=== PATIENT | male | born 1935 | race Caucasian/White ===

== ENCOUNTER 2019-08-19 19:15 | Emergency (ER) | payer MEDICARE, SELFPAY ==
[2019-08-19 19:28] VITALS: BP 152/78; PULSE 70; RESP 18; TEMP 36.6; O2SAT 100
--- NOTE | 2019-08-19 19:30 | ED.GENADULT ---
HPI - General Adult General Chief complaint: Wound/Laceration Stated complaint: Laceration Left hand Time Seen by Provider: 08/19/19 19:36 Source: patient and RN notes reviewed Mode of arrival: ambulatory Limitations: no limitations History of Present Illness HPI narrative: History today on 08/18/2019 the patient was taking out a garbage disposal and it accidentally caused a small skin tear on the dorsal aspect of the left hand over the midportion of the metacarpal areas between the fourth and fifth metacarpals. He is right-handed. He indicates that this does not hurt. He like to have a tetanus vaccine since he had one last more than 15 years ago. He has never had any adverse reactions to tetanus vaccines in the past. States he has no numbness or tingling or pain in the hand. He did not injure any other areas. He otherwise has been feeling well without any ear pain, no nasal drainage, no sore throat, no fever, no cough. He has had no nausea, no vomiting, no diarrhea. He has had no hematuria, no dysuria, no pyuria. He has had no rashes. Related Data Home Medications Medication Instructions Recorded Confirmed doxazosin 8 mg DAILY 08/19/19 08/19/19 finasteride 5 mg DAILY 08/19/19 08/19/19 memantine 10 mg BID 08/19/19 08/19/19 pantoprazole 40 mg PO DAILY 08/19/19 08/19/19 valsartan 80 mg DAILY 08/19/19 08/19/19 Allergies Allergy/AdvReac Type Severity Reaction Status Date / Time No Known Allergies Allergy Verified 08/19/19 19:36 Review of Systems Review of Systems: Narrative: CONSTITUTIONAL: Denies fever, chills, or sweats. Noncontributory except as pertains to the past medical history and history of present illness EYES: Denies visual changes, redness, or discharge. ENT: Denies rhinorrhea, congestion, sore throat, or otalgia. CARDIOVASCULAR: Denies chest pain, palpitations, or edema. RESPIRATORY: Denies cough or dyspnea. GASTROINTESTINAL: Denies abdominal pain, nausea, vomiting, or diarrhea. GENITOURINARY: Denies dysuria or hematuria. SKIN: Denies rash or itching. MUSCULOSKELETAL: Denies back pain, joint pain, or myalgia. NEUROLOGIC: Denies headache, numbness, or weakness. PSYCHIATRIC: Denies anxiety or depression. PMFSH Comments At time of signature, I have reviewed and agree with nursing past medical, surgical, social, and family history.Please see nursing chart for further information. There is no relevant family history pertinent to the presenting complaint. Exam Narrative: Exam Narrative: GENERAL: Well-appearing, well-nourished, and in no acute distress. HEAD: Normocephalic, atraumatic. EYES: PERRLA and EOMI. EARS: TM's clear bilaterally and the canals are clear. NOSE: Nares clear, no rhinorrhea or epistaxis. THROAT:Mucous membranes moist.Oropharynx normal without erythema or exudates NECK: Supple. No adenopathy of the neck, supraclavicular, axillary, inguinal areas RESPIRATORY: No respiratory distress. Airway patent. Respirations non-labored. Clear to auscultation. There are no wheezes, no rales, no retractions, no use accessory muscles respirations. Patient is not cyanotic and not dyspneic. HEART: Regular rate and rhythm. No murmur heard. Normal peripheral pulses. ABDOMEN: Soft, nontender, nondistended, normal active bowel sounds.No masses. No rebound or guarding, No organomegaly. There is no CVA pain. No pain McBurney's point. He has a negative Ott sign and negative Rovsing sign. There are no pulsatile masses or audible bruits. EXTREMITIES: No clubbing/cyanosis/ edema.Normal strength & range of motion. The extremity exam is normal except for the left hand which has a 2-3mm wide by 5mm llong superficial skin tear which is not actively bleeding and is well approximated. There is no foreign body seen or palpated. There is no evidence of infection. He has full range of motion in flexion-extension of all fingers of the left hand including normal opposition of the thumb. Nailbeds deann normally have normal cap
[2019-08-19] MEDS: TETANUS,DIPHTHERIA,AC PERTUSSIS ADULT (0.5 ML) BOOSTRIX IM (19:35)
== END 2019-08-19 19:55 | disposition home or self-care (01) ==
PROVIDERS: Emergency Provider Family Medicine; PCP Family Medicine
DX: S61.412A Laceration without foreign body of left hand, initial encounter (principal); W26.8XXA Contact with other sharp object(s), not elsewhere classified, initial encounter; Z23 Encounter for immunization; I10 Essential (primary) hypertension
CPT/HCPCS: 90471; 90715; 99202; G0463

== ENCOUNTER 2019-11-17 09:00 | Emergency (ER) | payer MEDICARE, SELFPAY ==
--- NOTE | ~2019-11-17 | XR_ITS ---
EXAMINATION: XR chest 1V portable 11/17/2019 09:42 INDICATION: Weakness. Transient alteration of awareness. Status post fall. PROCEDURE: AP portable chest COMPARISON: No prior studies for comparison. FINDINGS: The lungs are clear. The cardiomediastinal silhouette is within normal limits. There are no pleural effusions. There is no pneumothorax suspected. IMPRESSION: 1: NO ACUTE CARDIOPULMONARY DISEASE. Reviewed, dictated and finalized at location A.
--- NOTE | ~2019-11-17 | CT_ITS ---
EXAMINATION: CT brain wo con DATE: 11/17/2019 09:52 INDICATION: Altered mental status. Confusion. TECHNIQUE: Computed tomography (CT) of the head was performed without intravenous contrast. The dose- length product was 605.33 mGy-cm. The mA was adjusted according to patient size. Iterative reconstruc tion technique was employed. COMPARISON: None FINDINGS: No acute intracranial hemorrhage, infarction, mass or mass effect. No ventriculomegaly or m idline shift. Basilar cisterns are patent. There is intracranial atherosclerosis. Mild atrophy. There are scattered mild periventricular and subcortical white matter changes, most likely related to smal l vessel ischemic disease (microangiopathy). IMPRESSION: 1. No acute intracranial abnormality. 2: Chronic age-related findings. Reviewed, dictated and finalized at location A.
[2019-11-17 09:01] VITALS: BP 113/66; PULSE 97; RESP 16; TEMP 36.6; O2SAT 99
--- NOTE | 2019-11-17 09:09 | ECG_ITS ---
Measurements Intervals [place] Rate: 66 P: 59 DE: 155 QRS: -24 QRSD: 106 T: 71 QT: 377 QTc: 398 Interpretive Statements SINUS RHYTHM WITH SINUS ARRHYTHMIA INCOMPLETE RIGHT BUNDLE BRANCH BLOCK BORDERLINE ECG Electronically Signed On 11-17-2019 9:23:51 CDT by Smith Mcwilliams D.O.
[2019-11-17] MEDS: SODIUM CHLORIDE 0.9% IV 1,000 ML 999 ML IV CONT (09:16)
--- NOTE | 2019-11-17 09:23 | ED.AMS ---
HPI - Altered Mental Status General Chief Complaint: Altered Mental Status Stated Complaint: abd pain Time Seen by Provider: 11/17/19 09:02 Source: RN notes reviewed History of Present Illness HPI narrative: Patient presents emergency department from home for confusion. Patient's history is per the patient as well as the . Patient currently lives at home with his and has a history of dementia. She states that over the past several days the patient has had some increased confusion. She states that he did fall 2 days ago. She denies any known injuries from the fall. Denies any acute illness but states the patient has been losing weight and not eating over the past month. He is scheduled to see GI in consultation coming up secondary to this. Patient denies any fevers or chills chest pain shortness of breath abdominal pain nausea vomiting or any other symptoms Related Data Home Medications Medication Instructions Recorded Confirmed doxazosin 8 mg DAILY 08/19/19 08/19/19 finasteride 5 mg DAILY 08/19/19 08/19/19 memantine 10 mg BID 08/19/19 08/19/19 pantoprazole 40 mg PO DAILY 08/19/19 08/19/19 valsartan 80 mg DAILY 08/19/19 08/19/19 Allergies Allergy/AdvReac Type Severity Reaction Status Date / Time No Known Allergies Allergy Verified 08/19/19 19:36 Review of Systems Review of Systems: Narrative: Gen.: Denies fevers or chills Eyes: Denies eye pain or visual change ENT: Denies congestion Respiratory: Denies shortness of breath or cough CV: Denies chest pain or palpitations GI: Denies abdominal pain nausea, emesis or diarrhea Musculoskeletal: Denies back pain or muscle pain Neuro: Denies numbness, tingling, weakness or focal weakness Skin: Denies rash Except as documented, all other systems reviewed and negative [facility] Past Medical History Medical History (Updated 11/17/19 @ 11:50 by Joel Francis DO) Dementia Social History Social History (Updated 11/17/19 @ 09:25 by Joel Francis DO) Smoking status: Never smoker Gender identity (if verbalized by the patient): Male Exam Narrative: Exam Narrative: APPEARANCE: No acute distress, nontoxic, resting in bed EYES: EOMI, [place] HEENT: Normocephalic, atraumatic, OMM RESPIRATORY: No respiratory distress Clear to auscultation bilaterally with no rhonchi wheezing or rales. CARDIOVASCULAR: Regular rate and rhythm without murmurs rubs or gallops. ABDOMINAL: Soft, nontender, nondistended, no rebound or guarding Rectal: No hemorrhoids or fissures, small amount of soft brown stool is Hemoccult negative MUSCULOSKELETAl: Moves all extremities. No clubbing, cyanosis or edema. NEURO: Awake and alert x 2. Following commands, speech normal, no focal deficits muscle strength 5 out of 5 bilateral upper and lower extremities SKIN:: Warm, dry. No rashes lesions or abrasions PSYCHIATRIC: Normal affect/mood, Course Course Emergency Course: Discussed with Dr. Curiel presentation work-up. Patient is being worked up by GI for early satiety agrees with plan for discharge and follow-up as an outpatient Discussed with patient's is present. She states patient does appear to be his baseline currently and is comfortable with patient returning home Discussed with patient results of workup and diagnosis. Discussed need for follow-up with primary care, proper use of medication, and reasons to return to the emergency department. Patient understands and agrees to current treatment plan Vital Signs Vital signs: Vital Signs Temperature 97.8 F 11/17/19 09:01 Pulse Rate 97 11/17/19 09:01 Respiratory Rate 16 11/17/19 09:01 Blood Pressure 113/66 11/17/19 09:01 Pulse Oximetry 99 11/17/19 09:01 Temperature 97.8 F 11/17/19 09:01 Pulse Rate 97 11/17/19 09:01 Respiratory Rate 14 11/17/19 09:46 Blood Pressure 113/66 11/17/19 09:01 Pulse Oximetry 99 11/17/19 09:46 MDM - Altered Mental Status Lab Data Result diagrams: 11/17/19 09:15
[2019-11-17 09:35] LABS: Basophils Percent Auto 0.4 % (0.2-1.2); Eosinophils Absolute Auto 0.1 K/mm3 (0-0.3); Eosinophils Percent Auto 2.5 % (0-4.4); Hemoglobin 13.6 g/dL (14.0-18.0); Immature Granulocyte Absolute 0.01 K/mm3 (0.00-0.031); Immature Granulocyte Percent A 0.2 % (0-0.5); Lymphocytes Absolute Auto 1.67 K/mm3 (0.9-3.2); Lymphocytes Percent Auto 30.2 % (18.3-44.2); Mean Corpuscular HGB Conc 33.2 g/dl (32-36); Mean Corpuscular Hemoglobin 30.7 pg (26-34); Mean Corpuscular Volume 92.6 fl (80-100); Mean Platelet Volume 10.3 fl (7.4-10.4); Monocytes Absolute Auto 0.4 K/mm3 (0.1-0.6); Monocytes Percent Auto 7.6 % (2.6-8.5); Neutrophils Absolute Auto 3.3 K/mm3 (1.3-6.7); Neutrophils Percent Auto 59.1 % (45.5-73.1); Platelet Count Result 174 k/mm3 (150-375); Red Blood Count 4.43 M/mm3 (4.6-6.20); Red Cell Distribution Width 13.7 % (11.5-14.5); White Blood Count 5.5 K/mm3 (4.5-10.0)
[2019-11-17 09:37] LABS: Add Urine Microscopic? NO; Appearance Urine Clear (Clear); Bilirubin Urine Negative (Negative); Blood Urine Negative (Negative); Color Urine Yellow (Yellow); Glucose Urine UA Negative (Negative); Ketones Urine Negative (Negative); Leukocyte Esterase Ur Negative LEU/UL (Negative); Nitrate Urine Negative (Negative); Protein Urine Negative (Negative); Specific Grav Ur 1.023 (1.001-1.035); Urobilinogen Urine Negative mg/dL (<2.0)
[2019-11-17 09:46] VITALS: RESP 14; O2SAT 99
[2019-11-17 09:47] LABS: Alanine Aminotransferase 21 U/L (4-50); Albumin Level 3.7 g/dL (3.5-5.1); Alkaline Phosphatase 60 U/L (38-126); Aspartate Amino Transferase 27 U/L (17-59); Bilirubin,Total 0.5 mg/dL (0.2-1.3); Blood Urea Nitrogen 26 mg/dL (9-20); Calcium 8.9 mg/dL (8.4-10.2); Carbon Dioxide 23 mmol/L (22-30); Chloride 107 mmol/L (98-107); Estimated CRCL calculation 49 ml/min; Estimated Glomerular Filt Rate > 60; Glucose 126 mg/dL (75-110); Potassium 3.9 mmol/L (3.4-5.0); Sodium 139 mmol/L (137-145)
[2019-11-17 09:49] LABS: Prothrombin Time 13.3 Seconds (11.1-14.7)
[2019-11-17 09:50] LABS: Partial Thromboplastin Time 29.5 SECONDS (22.3-36.8)
[2019-11-17 11:00] VITALS: BP 137/75; PULSE 76; RESP 18; O2SAT 98
[2019-11-17 11:45] VITALS: BP 134/74; PULSE 72; RESP 16; O2SAT 97
== END 2019-11-17 12:06 | disposition home or self-care (01) ==
PROVIDERS: Emergency Provider Emergency Medicine; PCP Family Medicine
DX: R41.0 Disorientation, unspecified (principal); F03.90 Unspecified dementia, unspecified severity, without behavioral disturbance, psychotic disturbance, mood disturbance, and anxiety
CPT/HCPCS: 36415; 70450; 71045; 80053; 81003; 85025; 85610; 85730; 93005; 96360; 99284; J7030

== ENCOUNTER 2019-12-02 13:49 | Inpatient (IN) | payer MEDICARE, SELFPAY ==
[2019-12-02] VITALS (29 sets, daily range): BP systolic 81–174; BP diastolic 58–84; PULSE 61–91; RESP 9–21; TEMP 36–36.8; O2SAT 89–100; BMI 21.2
--- NOTE | ~2019-12-02 | XR_ITS ---
EXAMINATION: XR chest 2V EXAM DATE: 12/02/2019 15:51 INDICATION: Transient alteration of awareness. Right lower quadrant pain, weight loss. Fecal impactio n. TECHNIQUE: Frontal and lateral projections of the chest obtained and reviewed. Comparison is made to prior examination from 11/17/2019. FINDINGS: The lungs are clear. There are no pleural effusions. The cardiomediastinal silhouette is within normal limits. There is no pneumothorax suspected. There are bony degenerative changes. High riding humeral heads bilaterally, getting chronic rotator cuff tears. 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 There are cholecystectomy clips. Accounting for differences in technique, there is no signific ant interval change. IMPRESSION: No acute cardiopulmonary findings. Reviewed, dictated and finalized at location A.
--- NOTE | ~2019-12-02 | XR_ITS ---
EXAMINATION: XR abdomen obstructive series DATE: 12/05/2019 08:12 INDICATION: Constipation TECHNIQUE: Frontal supine and upright views of the abdomen were obtained. COMPARISON: 12/02/2019 FINDINGS: Cholecystectomy clips in the right upper quadrant. Moderate sized ball of stool at the rectum and sma ll amount of stool in the ascending colon. No dilated gas-filled loops of bowel. No free intraperito jonas gas. Multiple phleboliths in the pelvis. Visualized mid to lower lungs are clear. Heart size is normal. Mild lumbar levoscoliosis with severe spondylosis. Moderate right and mild left hip osteoarth ritis. IMPRESSION: 1. Moderate amount of stool at the rectum consistent with given history of constipation. No free intr aperitoneal gas or dilated gas-filled loops of bowel to suggest obstruction. Reviewed, dictated and finalized at location A. IMPRESSION: 1. Moderate amount of stool at the rectum consistent with given history of cons tipation. No free intraperitoneal gas or dilated gas-filled loops of bowel to s uggest obstruction.
--- NOTE | ~2019-12-02 | MR_ITS ---
EXAMINATION: MR brain/brain stem wo con DATE: 12/04/2019 15:14 INDICATION: Altered mental status. Worsening dementia. TECHNIQUE: Magnetic resonance imaging (MRI) of the brain and brainstem was performed without intraven ous contrast. Sequences included sagittal and axial T1-weighted SE, axial diffusion-weighted FS SE, a xial T2*-weighted GRE, axial T2-weighted FLAIR, and axial T2-weighted FSE. Apparent diffusion coeffic ient (ADC) maps were created. COMPARISON: CT dated 12/02/2019 FINDINGS: There are no areas of restricted diffusion to suggest acute infarction. No intracranial hemorrhage or abnormal intracranial mass lesion. There are scattered areas of nonspecific increased T2-weighted si gnal intensity in the cerebral white matter, predominantly involving the deep and periventricular whi te matter. There are no intraparenchymal signal abnormalities seen on the other pulse sequences. Symm etric prominence of the sulci and subarachnoid spaces overlying the convexities consistent with mild age-appropriate diffuse cerebral volume loss. The ventricles are symmetric and normal in size. There are no abnormal extra-axial fluid collections. Flow voids are seen in the cerebral arteries on the T 2-weighted sequences consistent with their expected patency. Changes of bilateral intraocular lens re placement. Visualized orbits and soft tissues are unremarkable. IMPRESSION: 1. Normal aging brain with mild volume loss and mild scattered nonspecific white matter T2 hyperinten sity consistent with chronic small vessel ischemic disease. Reviewed, dictated and finalized at location A. IMPRESSION: 1. Normal aging brain with mild volume loss and mild scattered nonspecific whit e matter T2 hyperintensity consistent with chronic small vessel ischemic diseas e.
--- NOTE | ~2019-12-02 | CT_ITS ---
EXAMINATION: CT abdomen pelvis w con EXAM DATE: 12/02/2019 15:45 INDICATION: Dementia, loss of appetite. Right lower quadrant pain. TECHNIQUE: Spiral CT of the abdomen and pelvis was performed following intravenous injection of 100 m L Omnipaque 350. Axial, coronal and sagittal images were reviewed. The dose-length product (DLP) fo r this examination was 629.36 mGy-cm. The exposure was tailored according to patient size (auto mA e xposure control), and iterative reconstruction (ASIR) was used as additional dose reduction technique . There is no prior study for comparison. FINDINGS: There is fecal impaction with rectal vault measuring 8 cm in greatest dimension. The liver , spleen, adrenal glands and pancreas are unremarkable. There are cholecystectomy clips. Portal and splenic veins are patent. Kidneys enhance symmetrically. There is no hydronephrosis. There are luis ateral renal peripelvic cysts. Calcifications in the pelvis are believed to be phleboliths. The pro state is unremarkable. The bladder is unremarkable. There is no retroperitoneal or pelvic lymphaden opathy. There is mild scattered arteriosclerotic disease. Tiny umbilical fat-containing hernia. The appendix is normal. The stomach and small bowel are unremarkable. There is colonic interposition . There is moderate sigmoid, otherwise mild scattered colonic diverticulosis. There is no adjacent i nflammatory change to suggest diverticulitis. No free intraperitoneal gas. The heart is normal in size. There are no pericardial or pleural effusions. The lung bases are unremarkable. There are no osteoblastic or osteolytic lesions identified. Chronic mild compression fractures. IMPRESSION: 1. Fecal impaction. 2. Colonic diverticulosis. Reviewed, dictated and finalized at location A.
--- NOTE | ~2019-12-02 | CT_ITS ---
EXAMINATION: CT brain wo con DATE: 12/02/2019 15:45 INDICATION: Altered mental state. Dementia. Loss of appetite. TECHNIQUE: Computed tomography (CT) of the head was performed without intravenous contrast. The mA wa s adjusted according to patient size. Iterative reconstruction technique was employed. Exam dose: 52 9.67 mGy-cm total exam DLP. COMPARISON: 11/17/2019 CT brain FINDINGS: Bilateral vertebral artery, basilar and bilateral carotid siphon internal carotid artery as well as supraclinoid internal carotid artery calcifications. There is nonspecific diminished attenuation of the cerebral white matter, likely due to chronic small vessel ischemic changes. Minimal basal ganglia calcifications. No intracranial mass lesion or hemorrhage, midline shift or mass effects. No subdural or epidural hem atoma is detected. No fracture or bone destruction of the cranial vault. The mastoid air cells and included paranasal sinuses are unremarkable. IMPRESSION: Cerebral atherosclerosis and chronic small vessel ischemic changes of the cerebral white matter No acute intracranial finding Reviewed, dictated and finalized at [facility]. Reviewed, dictated and finalized at [facility].
--- NOTE | 2019-12-02 14:45 | ECG_ITS ---
Measurements Intervals [place] Rate: 76 P: 45 LA: 156 QRS: -18 QRSD: 114 T: 46 QT: 383 QTc: 433 Interpretive Statements SINUS RHYTHM INCOMPLETE RIGHT BUNDLE BRANCH BLOCK BASELINE ARTIFACT- I, II, III, AVR, AVL, AVF, V1-V6 BORDERLINE ECG Electronically Signed On 12-02-2019 15:46:47 CDT by Smith Mcwilliams D.O.
--- NOTE | 2019-12-02 14:45 | ED.AMS ---
HPI - Altered Mental Status General Chief Complaint: Altered Mental Status Stated Complaint: decreased po for 2 months Time Seen by Provider: 12/02/19 14:30 Source: family Mode of arrival: ambulatory Limitations: dementia History of Present Illness HPI narrative: Patient is an 84-year-old male who presents to the emergency department with complaint of increased confusion and combative behaviors. History provided by due to patient's dementia. Patient has had weight loss over the past couple of months and has not been eating and drinking well. His urine output has been decreased. Patient was seen at neurologist office today and was advised to come to the emergency department for evaluation and admission. states that patient is increasingly agitated and not sleeping more than 15 to 20 minutes at a time and becoming unmanageable for patient and her two daughters to care for at home. Patient was diagnosed with dementia 2 years ago and has been maintained on medications. Patient complains to me of pain in the right lower quadrant/groin and pain with urination. MD complaint: altered mental status Timing confirmed by: spouse Related Data Home Medications Medication Instructions Recorded Confirmed doxazosin 8 mg DAILY 08/19/19 08/19/19 finasteride 5 mg DAILY 08/19/19 08/19/19 memantine 10 mg BID 08/19/19 08/19/19 pantoprazole 40 mg PO DAILY 08/19/19 08/19/19 valsartan 80 mg DAILY 08/19/19 08/19/19 Allergies Allergy/AdvReac Type Severity Reaction Status Date / Time Influenza Virus Vaccines Allergy Severe HIVES, N/V Verified 12/01/19 08:53 Penicillins Allergy Intermediate HIVES Verified 12/01/19 08:53 morphine Allergy Unknown Verified 12/01/19 08:53 Review of Systems Review of Systems: All systems reviewed & are unremarkable except as noted in HPI and below Constitutional: Constitutional: Denies fever(s) Respiratory: Respiratory: Denies cough and Denies dyspnea Gastrointestinal: Gastrointestinal: Reports abdominal pain, Denies diarrhea, Denies nausea and Denies vomiting Genitourinary: Genitourinary: Reports dysuria PMFSH Past Medical History Medical History Dementia Diverticulosis Gastritis Hypertension Reflux esophagitis Surgical History Surgical History History of cholecystectomy History of colonoscopy History of esophagogastroduodenoscopy (EGD) History of left inguinal hernia repair Social History Social History (Updated 12/02/19 @ 14:50 by Chloe Delgado MD) Smoking status: Never smoker Living arrangements: with family Gender identity (if verbalized by the patient): Male Exam Const: General: cooperative, no acute distress and alert Nutritional Appearance: thin Orientation/consciousness: oriented to person and confusion HENMT: Mouth: Yes lip normal and Yes dry mucous membranes Resp: Effort & Inspection: normal respiratory effort Auscultation: clear to auscultation bilaterally Cardio: Rate: regular rate Rhythm: regular rhythm GI: GI Palp: Yes Soft to palpation and Yes Tenderness to palpation present (GI) (Diffuse right lower abdomen/flank) Auscultation: normal bowel sounds Skin: General skin exam: normal color and no rashes or lesions noted Neuro: General: moves all extremities Cognition (Neuro): normal cognition Speech: normal speech Extrem: General: normal to inspection, full ROM and no clubbing, cyanosis or edema Psych: Appearance: grossly normal Affect: normal affect Attitude: cooperative Course Course Emergency Course: Patient with worsening dementia symptoms. Patient with findings of dehydration and fecal impaction. Patient will be admitted to hospitalist service for enema, IV fluids, and further evaluation and treatment of his worsening symptoms. Patient may need mcc placement. Consultations Consultation #1: Case discussed with Werner
[2019-12-02 15:09] LABS: Basophils Percent Auto 0.6 % (0.2-1.2); Eosinophils Absolute Auto 0.2 K/mm3 (0-0.3); Eosinophils Percent Auto 2.8 % (0-4.4); Hematocrit 37.6 % (42.0-52.0); Hemoglobin 12.9 g/dL (14.0-18.0); Immature Granulocyte Absolute 0.02 K/mm3 (0.00-0.031); Immature Granulocyte Percent A 0.3 % (0-0.5); Lymphocytes Absolute Auto 1.47 K/mm3 (0.9-3.2); Lymphocytes Percent Auto 21.8 % (18.3-44.2); Mean Corpuscular HGB Conc 34.3 g/dl (32-36); Mean Corpuscular Hemoglobin 31.1 pg (26-34); Mean Corpuscular Volume 90.6 fl (80-100); Mean Platelet Volume 9.6 fl (7.4-10.4); Monocytes Absolute Auto 0.6 K/mm3 (0.1-0.6); Monocytes Percent Auto 8.7 % (2.6-8.5); Neutrophils Absolute Auto 4.4 K/mm3 (1.3-6.7); Neutrophils Percent Auto 65.8 % (45.5-73.1); Platelet Count Result 183 k/mm3 (150-375); Red Blood Count 4.15 M/mm3 (4.6-6.20); Red Cell Distribution Width 13.5 % (11.5-14.5); White Blood Count 6.8 K/mm3 (4.5-10.0)
[2019-12-02 15:19] LABS: INR 1.1; Prothrombin Time 13.5 Seconds (11.1-14.7)
[2019-12-02 15:20] LABS: Partial Thromboplastin Time 30.3 SECONDS (22.3-36.8)
[2019-12-02 15:22] LABS: Alanine Aminotransferase 24 U/L (4-50); Albumin Level 3.6 g/dL (3.5-5.1); Alkaline Phosphatase 65 U/L (38-126); Aspartate Amino Transferase 30 U/L (17-59); Bilirubin,Total 0.6 mg/dL (0.2-1.3); Blood Urea Nitrogen 25 mg/dL (9-20); Calcium 8.9 mg/dL (8.4-10.2); Carbon Dioxide 25 mmol/L (22-30); Chloride 106 mmol/L (98-107); Creatine Kinase 64 U/L (55-170); Estimated CRCL calculation 45 ml/min; Estimated Glomerular Filt Rate > 60; Glucose 102 mg/dL (75-110); Lactate Dehydrogenase 328 U/L (313-618); Magnesium 2.1 mg/dL (1.6-2.3); Phosphorus 3.2 mg/dL (2.5-4.5); Potassium 4.1 mmol/L (3.4-5.0); Sodium 137 mmol/L (137-145)
[2019-12-02 17:30] LABS: Add Urine Microscopic? YES; Appearance Urine Clear (Clear); Bacteria Urine Trace /hpf; Bilirubin Urine Negative (Negative); Blood Urine Negative (Negative); Color Urine Yellow (Yellow); Glucose Urine UA Negative (Negative); Ketones Urine Negative (Negative); Leukocyte Esterase Ur Negative LEU/UL (Negative); Mucus Urine Few /lpf; Nitrate Urine Negative (Negative); Protein Urine 1+ mg/dL (Negative); RBC Urine 0-2 /hpf (0-2); Squamous Epithelial Cell Urine Rare /hpf (Few); Urobilinogen Urine Negative mg/dL (<2.0); WBC Urine 0-3 /hpf
[2019-12-02 17:36] LABS: Specific Grav Ur 1.049 (1.001-1.035)
--- NOTE | 2019-12-02 19:51 | PC.NURSE ---
Per EDP, Dr. Delgado, DMOENIC patient's enema is a floor order and not to be done in ER.
[2019-12-02] MEDS: LACTATED RINGERS 1,000 ML 125 ML IV CONT (21:08)
--- NOTE | 2019-12-02 21:58 | ADMGEN ---
This patient, Rob Wilson Jr., was admitted to 2 Medical Room 255-01. Patient/family oriented to hospital policies and general routines including ID bracelet, bed and alarms, visiting hours, pain management, procedures, bathroom and other care routines, personal items, smoking policy, room service/diet, and visiting hours. Valuables list has been completed. Information on how to activate the Rapid Response Team has been discussed. Patient/Family are encouraged to report perceived risks to care and to ask questions if they do not understand what they are told or what they should do.
[2019-12-02] MEDS: QUEtiapine FUMARATE 25 MG TABLET PO (22:33)
--- NOTE | 2019-12-02 23:11 | PC.NURSE ---
Per order by Dr Coleman, holding enema until 6am to allow patient to rest.
--- NOTE | 2019-12-02 23:21 | PM.IMHP ---
H&P: HPI History of Present Illness Chief complaint: Worsening dementia, weight loss Narrative: Date and time of patient contact: 12/02/2019 at 10:50 p.m. Rob Wilson Jr. is a 84 year old male with a past medical history of BPH and dementia who was brought into the ER by his due to decreased appetite and fluid intake, weight loss and worsening dementia. The patient has evidently been having increased confusion and combative behaviors. He has had progressive weight loss over the last couple of months. He has not been eating or drinking well and has had decreased urine output. He was evaluated by his neurologist earlier today and family was told to bring the patient to the ER for evaluation and admission. The patient has not been sleeping for more than 15 or 20 minutes at a time and is becoming increasingly more unmanageable at home. He has been having periods of aggression. The patient is only oriented to person only. The patient keeps repetitively telling me that it is his time to go and that the [facility] is ready to take him. He is upset that he cannot up get up to ambulate to the bathroom. He denies any complaints of pain however when I tried to palpated his abdomen he repetitively asks me not to push on his belly. CT scan with contrast performed in the ER demonstrated fecal impaction and diverticulosis. Review of Systems Review of Systems: ROS unobtainable: Yes unobtainable due to medical condition and unobtainable due to mental status [facility] Past Medical History Medical History (Updated 12/03/19 @ 00:10 by Zainab Coleman DO) Dementia Diagnosis October 2017 Diverticulosis Esophageal stricture Gastritis Chronic gastritis noted on EGD March 2012 Gastroparesis Delayed gastric emptying noted on gastric emptying study January 2016 Hypertension Internal hemorrhoids Surgical History Surgical History (Updated 12/03/19 @ 00:10 by Zainab Coleman DO) History of cholecystectomy 2005 History of colonoscopy With small internal hemorrhoids, rectal had and diverticulosis noted on colonoscopy May [address] Stout History of esophagogastroduodenoscopy (EGD) March 2012 History of left inguinal hernia repair 1955 and recurrence with repair in 2010 with mesh placement History of right knee surgery Removal of right patella 1967 Family History Family History (Updated 12/02/19 @ 23:31 by Zainab Coleman DO) Mother Bladder disease Heart disease Sibling , Brother Chronic kidney disease Diabetes mellitus Father Diabetes mellitus Heart disease Social History Social History (Updated 12/03/19 @ 00:10 by Zainab Coleman, DO) Social History: Primary care physician: Dr. Sandra Curiel Code status: DNR per family request Smoking status: Never smoker Alcohol intake: former Alcohol use details: Rarely and only in moderation. Substance use: never Living arrangements: with family Additional living arrangements comments: He lives in [place] annoyed with his . 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 Gender identity (if verbalized by the patient): Male Meds Home Medications and Allergies Home Medications Medication Instructions Recorded Confirmed Type doxazosin 8 mg PO DAILY 08/19/19 12/02/19 History finasteride 5 mg PO DAILY 08/19/19 12/02/19 History memantine 10 mg PO BID 08/19/19 12/02/19 History pantoprazole 40 mg PO DAILY 08/19/19 12/02/19 History valsartan 80 mg PO DAILY 08/19/19 12/02/19 History Adult Low Dose Aspirin 81 mg BYMOUTH DAILY 12/02/19 12/02/19 History Allergies Allergy/AdvReac Type Severity Reaction Status Date / Time Influenza Virus Vaccines Allergy Severe HIVES, N/V Verified 12/01/19 08:53 Penicillins Allergy Intermediate HIVES Verified 12/01/19 08:53 morphine Allergy Unknown Verified 12/01/19 08:53 Vital Signs Vital Signs - 24
[2019-12-03] VITALS (9 sets, daily range): BP systolic 151–157; BP diastolic 78–81; PULSE 62–91; RESP 15–20; TEMP 36.4–37.1; O2SAT 99
[2019-12-03] MEDS: polyethylene glycoL 3350 238 GM BOTTLE 17 GM PO (00:48)
[2019-12-03] MEDS: ACETAMINOPHEN 500 MG TABLET 1000 MG PO (00:50)
[2019-12-03] MEDS: DOCUSATE SODIUM 400 MG/400 ML ENEMA RECTAL (06:33)
[2019-12-03] MEDS: polyethylene glycoL 3350 17 GM POWD.PACK PO (09:15)
[2019-12-03] MEDS: ENOXAPARIN 40 MG/0.4 ML SYRINGE SUB-Q (09:15)
[2019-12-03] MEDS: LACTATED RINGERS 1,000 ML 125 ML IV CONT (13:50)
--- NOTE | 2019-12-03 14:46 | PM.IMPN ---
Progress Note: A&P Assessment and Plan (1) Dementia: Code(s): F03.90 - Unspecified dementia without behavioral disturbance Status: Acute Assessment and Plan: -----patient has progressive dementia and is starting to have combative behaviors. He has not been sleeping which will exacerbate this chronic disease. Seroquel has been started we will see how he benefits from this. I do not see any organic cause her his confusion. UA, head CT, chest x-ray, and electrolytes showed no acute abnormalities. White blood cell count normal. TSH normal. Abdominal and pelvis CT show constipation but no malignancy or infection. (2) Dehydration: Code(s): E86.0 - Dehydration Status: Acute Assessment and Plan: -----likely due to dementia. Continue fluids, will decrease rate (3) Fecal impaction: Code(s): K56.41 - Fecal impaction Status: Acute Assessment and Plan: -----the patient has had a few smear since his enema this morning. Will do Dulcolax suppository. If it is not successful we will try an enema. Refused rectal exam today. Milk of Mag x1 given as well. (4) Hypertension: Code(s): I10 - Essential (primary) hypertension Status: Acute Assessment and Plan: -----last blood pressure 157/78. Will resume home valsartan. Time Spent With Patient Time with patient: 25 - 35 minutes Subjective Date/time seen: 12/03/19 14:46 Interval history: Pt is a 84-year-old male with dementia. Patient was seen today and was able to answer some questions but overall a poor historian. He also expressed some manic type behavior. He said he was not any pain and that he was preparing to . He specifically denied chest pain, shortness of breath or abdominal pain. Review of Systems Review of Systems: All systems reviewed & are unremarkable except as noted in HPI and below Exam Narrative: Exam Narrative: General: Frail elderly patient resting in bed in no acute distress HEENT: normocephalic Neck: supple Neuro: Alert and oriented to himself and location. Moves all extremities spontaneously. Would not cooperate for a neurological exam Psych: Manic behavior CV:RRR Resp:CTA Abd: Soft, non distended. No pain to palpation. Positive bowel sounds. Brown stool noted on exam. refused rectal exam. Extremities: No swelling, erythema, or pain to palpation. Objective Data Vital Signs Vital Signs: Vital Signs - 24 hr 12/02/19 15:00 12/02/19 15:01 12/02/19 15:15 Temperature Pulse Rate 77 77 73 Respiratory Rate 15 12 13 Blood Pressure 112/66 Pulse Oximetry 98 98 99 12/02/19 15:16 12/02/19 15:17 12/02/19 15:52 Temperature Pulse Rate 76 76 79 Respiratory Rate 17 18 9 L Blood Pressure 81/63 L Pulse Oximetry 98 99 98 12/02/19 16:00 12/02/19 16:15 12/02/19 16:31 Temperature Pulse Rate 73 73 73 Respiratory Rate 14 13 14 Blood Pressure Pulse Oximetry 99 100 99 12/02/19 16:45 12/02/19 17:00 12/02/19 17:01 Temperature Pulse Rate 71 89 85 Respiratory Rate 12 16 19 Blood Pressure 141/79 H Pulse Oximetry 99 100 100 12/02/19 17:15 12/02/19 17:30 12/02/19 17:45 Temperature Pulse Rate 77 72 68 Respiratory Rate 14 17 15 Blood Pressure Pulse Oximetry 95 100 94 12/02/19 17:46 12/02/19 18:03 12/02/19 18:15 Temperature Pulse Rate 65 68 75 Respiratory Rate 14 19 16 Blood Pressure 114/69 Pulse Oximetry 96 100 100 12/02/19 18:30 12/02/19 18:45 12/02/19 20:42 Temperature Pulse Rate 61 63 77 Respiratory Rate 14 17 18 Blood Pressure 154/84 H Pulse Oximetry 99 97 98 12/02/19 22:00 12/03/19 00:00 12/03/19 04:00 Temperature 96.8 F L Pulse Rate 74 81 62 Respiratory Rate 21 H Blood Pressure 174/70 H Pulse Oximetry 100 12/03/19 06:00 12/03/19 08:00 Temperature 97.8 F Pulse Rate 71 87 Respiratory Rate 20 Blood Pressure 155/81 H Pulse Oximetry 99 Intake/Output Inta
[2019-12-03] MEDS: BISACODYL 10 MG SUPPOSITORY RECTAL (15:33)
[2019-12-03] MEDS: MAGNESIUM HYDROXIDE SUSP 30 ML UDC PO (15:33)
--- NOTE | 2019-12-03 18:11 | CONS_ITS ---
DATE OF CONSULTATION: 12/02/2019 HISTORY OF PRESENT ILLNESS: An 84-year-old right-hand man has been admitted to [facility] via emergency room for the complaints of increasing poor appetite and poor fluid intake. In addition to that, he also has worsened dementia. Additionally, the patient has been more combative as well. He has not been eating or drinking at all. The patient has not been sleeping for more than 15 or 20 minutes at a time. He has become increasingly more unmanageable at home. He gave no history of any other associated pain. He has ongoing history of: 1. Dementia. 2. Diverticulosis. 3. Esophageal stricture with underlying gastritis. 4. Gastroparesis. 5. Hypertension. 6. Internal hemorrhoids. PAST SURGICAL HISTORY: In the past, he has undergone cholecystectomy, colonoscopy in 2011, esophagogastroduodenoscopy, left inguinal hernial repair and right knee surgery. 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 MEDICATIONS: Included: 1. Doxazosin 8 mg daily. 2. Finasteride 5 mg daily. 3. Memantine 10 mg twice a day. 4. Pantoprazole 40 mg daily. 5. Valsartan 80 mg daily. 6. Adult low-dose aspirin 81 mg daily. ALLERGIES: HE IS ALLERGIC TO INFLUENZA VACCINE, PENICILLIN, AND MORPHINE. PHYSICAL EXAMINATION: VITAL SIGNS: Evaluation up until now revealed him to be afebrile with pulse of 91, respirations 19, blood pressure 112/58. GENERAL: He is awake, alert, cooperative, in no obvious acute distress. HEENT: Head normocephalic with no cranial bruits. Ear, nose, throat exam normal. NECK: Supple with no cervical bruits. No thyromegaly. No lymphadenopathy. HEART: Regular with no murmur. LUNGS: Clear to auscultation. No rhonchi or crepitation. ABDOMEN: Soft with normal bowel sounds. SKIN: Normal. NEUROLOGICAL: He is awake, alert, disoriented in time and place. Pupils round, regular. [place]legre of vision, extraocular movements full to threat stimuli. Facial sensation intact. Face symmetrical and tongue midline. Motor examination revealed symmetrical strength in upper and lower extremities. Reflexes sluggish. Plantars are downgoing. LABORATORY DATA: Evaluation otherwise up until now included CBC with WBC 6.8, hemoglobin 12.9, platelet count 183. Basic metabolic panel normal. Hepatic enzymes normal with LDH of 328, TSH 1.560. UA negative. Abdominal pelvic CT scan, fecal impaction, colonic diverticulosis. Chest x-ray negative. EKG with sinus rhythm and right bundle-branch block. IMPRESSION AND PLAN: Progressive dementia. At present, the patient is receiving doxazosin 8 mg daily, finasteride 5 mg daily, Memantine 10 mg twice a day with pantoprazole 40 mg daily and valsartan 80 mg daily. The patient will benefit from the either going to group home or the long-term care. If the family wants to take him home, obviously they will need help as the is also older, but no further intervention is necessary. SALTY BECK M.D. AC[employer] BUTTON PASTER ACETONE BUTTON PASTER D I MT: Cheyanne
[2019-12-03] MEDS: QUEtiapine FUMARATE 25 MG TABLET PO (20:13)
[2019-12-03] MEDS: MEMANTINE 10 MG TABLET PO (20:13)
[2019-12-04] VITALS: PULSE 93
[2019-12-04] MEDS: LACTATED RINGERS 1,000 ML 75 ML IV CONT (00:53)
[2019-12-04 04:00] VITALS: PULSE 93
[2019-12-04 06:00] VITALS: BP 157/75; PULSE 92; RESP 18; TEMP 36.5; O2SAT 96
[2019-12-04 07:28] LABS: Hemoglobin 13.2 g/dL (14.0-18.0); Mean Corpuscular HGB Conc 34.7 g/dl (32-36); Mean Corpuscular Hemoglobin 31.4 pg (26-34); Mean Corpuscular Volume 90.3 fl (80-100); Mean Platelet Volume 9.9 fl (7.4-10.4); Platelet Count Result 182 k/mm3 (150-375); Red Blood Count 4.21 M/mm3 (4.6-6.20); Red Cell Distribution Width 13.2 % (11.5-14.5); White Blood Count 7.4 K/mm3 (4.5-10.0)
[2019-12-04 08:00] VITALS: PULSE 88; PULSE 92; RESP 18; O2SAT 96
[2019-12-04 08:12] LABS: Blood Urea Nitrogen 13 mg/dL (9-20); Calcium 8.1 mg/dL (8.4-10.2); Carbon Dioxide 28 mmol/L (22-30); Chloride 104 mmol/L (98-107); Estimated CRCL calculation 56 ml/min; Estimated Glomerular Filt Rate > 60; Glucose 92 mg/dL (75-110); Magnesium 2.2 mg/dL (1.6-2.3); Potassium 3.8 mmol/L (3.4-5.0); Sodium 138 mmol/L (137-145)
[2019-12-04] MEDS: ENOXAPARIN 40 MG/0.4 ML SYRINGE SUB-Q (08:41)
[2019-12-04] MEDS: MEMANTINE 10 MG TABLET PO ×2 (08:41→21:18)
[2019-12-04] MEDS: polyethylene glycoL 3350 17 GM POWD.PACK PO (08:41)
[2019-12-04] MEDS: DOXAZOSIN MESYLATE 4 MG TABLET 8 MG PO (08:41)
[2019-12-04] MEDS: ASPIRIN 81 MG CHEWABLE TABLET BY MOUTH (08:41)
[2019-12-04] MEDS: FINASTERIDE 5 MG TABLET PO (08:41)
[2019-12-04] MEDS: PANTOPRAZOLE 40 MG TABLET PO (08:41)
[2019-12-04] MEDS: VALSARTAN 80 MG TABLET PO (08:44)
--- NOTE | 2019-12-04 10:09 | PM.IMPN ---
Progress Note: A&P Assessment and Plan (1) Dementia: Code(s): F03.90 - Unspecified dementia without behavioral disturbance Status: Acute Assessment and Plan: -----patient has progressive dementia and is starting to have combative behaviors. He has not been sleeping which will exacerbate this chronic disease. Seroquel has been started and we will increase that to 50 mg at night. Because of this somewhat sudden onset of confusion, will extend the workup with blood cultures, ammonia, RPR, bladder scan, and a brain MRI. May consider lumbar puncture but meningitis is not suspected since the patient is freely moving his arms and body without any pain. I do not see any organic cause her his confusion. UA, head CT, TSH chest x-ray, and electrolytes showed no acute abnormalities. White blood cell count normal. Abdominal and pelvis CT show constipation but no malignancy or infection. (2) Dehydration: Code(s): E86.0 - Dehydration Status: Acute Assessment and Plan: -----likely due to dementia. Resolved. Discontinue fluids, encourage oral hydration (3) Fecal impaction: Code(s): K56.41 - Fecal impaction Status: Acute Assessment and Plan: -----patient has had many bowel movements but is refusing rectal exam. Will do imaging tomorrow morning. (4) Hypertension: Code(s): I10 - Essential (primary) hypertension Status: Acute Assessment and Plan: -----last blood pressure 157/75. Continue valsartan. Subjective Date/time seen: 12/04/19 10:09 Interval history: Pt is a 84-year-old male with dementia. Patient was seen today and not answering any questions appropriately. I called the daughter and had a long discussion with her. She says that this all really started 2 weeks ago and has been getting progressively worse. The patient is not eating, drinking or sleeping. Prior to this, he had the diagnosis of dementia for 2 years but he was alert and oriented x3 and very high functioning. This is a significant change according to her. Nursing staff does not know if he slept overnight. Exam Narrative: Exam Narrative: General: Frail elderly patient resting in bed in no acute distress HEENT: normocephalic Neck: supple Neuro: Alert but not oriented at all today. Moves all extremities spontaneously. Would not cooperate for a neurological exam Psych: Manic behavior CV:RRR Resp:CTA Abd: Soft, non distended. No pain to palpation. Positive bowel sounds. refused rectal exam. Extremities: No swelling, erythema, or pain to palpation. Objective Data Vital Signs Vital Signs: Vital Signs - 24 hr 12/03/19 12:00 12/03/19 14:00 12/03/19 16:00 Temperature 98.8 F Pulse Rate 91 81 90 Respiratory Rate 15 Blood Pressure 157/78 H Pulse Oximetry 99 12/03/19 20:00 12/03/19 22:00 12/04/19 00:00 Temperature 97.6 F Pulse Rate 88 87 93 Respiratory Rate 18 Blood Pressure 151/78 H Pulse Oximetry 99 12/04/19 04:00 12/04/19 06:00 Temperature 97.7 F Pulse Rate 93 92 Respiratory Rate 18 Blood Pressure 157/75 H Pulse Oximetry 96 Intake/Output Intake/Output: Intake & Output 12/01/19 12/02/19 12/03/19 12/04/19 23:59 23:59 23:59 23:59 Intake Total 1390 1420 Output Total 200 Balance 1190 1420 Meds/Results Medications: Active Medications Generic Name Dose Route Start Last Admin Trade Name Freq PRN Reason Stop Dose Admin Acetaminophen 500 mg 12/02/19 23:20 Tylenol Tablet PO Q4H PRN Mild Pain (1-3) or Fever Aspirin 81 mg 12/04/19 09:00 12/04/19 08:41 Aspirin Chewable BY MOUTH 01/03/20 09:01 81 mg DAILY RAJ Administration Doxazosin Mesylate 8 mg 12/04/19 09:00 12/04/19 08:41 Cardura PO 8 mg DAILY RAJ Administration Enoxaparin Sodium 40 mg 12/03/19 09:00 12/04/19 08:41 Lovenox SUB-Q 40 mg DAILY RAJ Administration Finasteride 5 mg 12/04/19 09:00 05
[2019-12-04 12:10] LABS: Ammonia < 9 umol/L (9-30)
[2019-12-04 12:15] LABS: CRP 2.3 mg/dL (<1.0)
[2019-12-04 14:00] VITALS: BP 145/73; PULSE 83; RESP 12; TEMP 36.7; O2SAT 98
[2019-12-04] MEDS: LORAZEPAM INJ 2 MG/ML VIAL 0.5 MG IV PUSH (14:35)
--- NOTE | 2019-12-04 16:00 | WPDNEUROPN ---
Progress Note: A&P Assessment and Plan (1) Hypertension: Code(s): I10 - Essential (primary) hypertension Status: Acute (2) Dementia: Code(s): F03.90 - Unspecified dementia without behavioral disturbance Status: Acute (3) Dehydration: Code(s): E86.0 - Dehydration Status: Acute (4) Altered mental status: Qualifiers: Altered mental status type: unspecified Qualified Code(s): R41.82 - Altered mental status, unspecified Code(s): R41.82 - Altered mental status, unspecified Status: Acute (5) Fecal impaction: Code(s): K56.41 - Fecal impaction Status: Acute (6) Dementia: Code(s): F03.90 - Unspecified dementia without behavioral disturbance Status: Acute Additional Plan brain MRI without contrast to see if he does have left hemispheric stroke or not he says he is left-handed rest of the management as before Review of Systems Review of Systems: All systems reviewed & are unremarkable except as noted in HPI and below Exam Const: General: comfortable and no acute distress HENMT: General nose exam: Normal nares present Mouth: Yes moist mucous membranes Eyes: General: appearance normal, both eyes and all related structures Neck: Neck: supple and no JVD Resp: Effort & Inspection: normal respiratory effort Auscultation: clear to auscultation bilaterally Cardio: Rate: regular rate Rhythm: regular rhythm GI: Auscultation: normal bowel sounds Skin: General skin exam: normal color and no rashes or lesions noted Neuro: Other: patient is clearly has signs of dementia of moderately severe degree and at times confabulating without any lateralizing focal motor deficit and occasional aphasic defect is a possibility that or does he is he may have had a left hemispheric stroke for that to document we need to do a brain MRI without contrast Extrem: General: normal to inspection Psych: Other: [id number] dementia Objective Data Vital Signs Vital Signs: Vital Signs - 24 hr 12/03/19 20:00 12/03/19 22:00 12/04/19 00:00 Temperature 36.4 C Pulse Rate 88 87 93 Respiratory Rate 18 Blood Pressure 151/78 H Pulse Oximetry 99 12/04/19 04:00 12/04/19 06:00 12/04/19 08:00 Temperature 36.5 C Pulse Rate 93 92 92 Respiratory Rate 18 18 Blood Pressure 157/75 H Pulse Oximetry 96 96 12/04/19 14:00 Temperature 36.7 C Pulse Rate 83 Respiratory Rate 12 Blood Pressure 145/73 H Pulse Oximetry 98 Intake/Output Intake/Output: Intake & Output 12/01/19 12/02/19 12/03/19 12/04/19 23:59 23:59 23:59 23:59 Intake Total 1390 1420 Output Total 200 Balance 1190 1420 Meds/Results Medications: Active Medications Generic Name Dose Route Start Last Admin Trade Name Freq PRN Reason Stop Dose Admin Acetaminophen 500 mg 12/02/19 23:20 Tylenol Tablet PO Q4H PRN Mild Pain (1-3) or Fever Aspirin 81 mg 12/04/19 09:00 12/04/19 08:41 Aspirin Chewable BY MOUTH 01/03/20 09:01 81 mg DAILY RAJ Administration Doxazosin Mesylate 8 mg 12/04/19 09:00 12/04/19 08:41 Cardura PO 8 mg DAILY RAJ Administration Enoxaparin Sodium 40 mg 12/03/19 09:00 12/04/19 08:41 Lovenox SUB-Q 40 mg DAILY RAJ Administration Finasteride 5 mg 12/04/19 09:00 12/04/19 08:41 Proscar PO 5 mg DAILY RAJ Administration Melatonin 5 mg 12/04/19 21:00 Melatonin PO HS RAJ Memantine 10 mg 12/03/19 21:00 12/04/19 08:41 Namenda PO 10 mg Q12HR RAJ Administration Pantoprazole Sodium 40 mg 12/04/19 09:00 12/04/19 08:41 Protonix PO 40 mg DAILY RAJ Administration Polyethylene Glycol 17 gm 12/03/19 09:00 12/04/19 08:41 Miralax PO 17 gm QAM RAJ Administration Quetiapine Fumarate 50 mg 12/04/19 21:00 Seroquel PO HS RAJ Tamsulosin HCl 0.4 mg 12/04/19 15:00 Flomax PO QAM RAJ Valsartan 80 mg 12/04/19 09:00 12/04/19 08:44 D
[2019-12-04] MEDS: TAMSULOSIN HCL 0.4 MG CAPSULE PO (16:54)
[2019-12-04 21:16] VITALS: BP 151/81; PULSE 87; RESP 16; TEMP 36.7; O2SAT 99
[2019-12-04] MEDS: MELATONIN 5 MG TABLET PO (21:18)
[2019-12-04] MEDS: QUEtiapine FUMARATE 25 MG TABLET 50 MG PO (21:18)
--- NOTE | 2019-12-05 05:33 | PC.NURSE ---
Pt fell asleep at 2330. Pt was very restless and woke up 3 times with increasing confusion and trying to flee his bed. Pt did calm down and did go back to sleep after each episode. Pt stayed awake around 0430. Pt has remained confused and only oriented to person with multiple attempts to flee his bed.
[2019-12-05 06:00] VITALS: BP 159/86; PULSE 92; RESP 16; TEMP 36.7; O2SAT 97
[2019-12-05] MEDS: DOXAZOSIN MESYLATE 4 MG TABLET 8 MG PO (09:40)
[2019-12-05] MEDS: MEMANTINE 10 MG TABLET PO ×2 (09:40→20:00)
[2019-12-05] MEDS: PANTOPRAZOLE 40 MG TABLET PO (09:41)
[2019-12-05] MEDS: VALSARTAN 80 MG TABLET PO (09:41)
[2019-12-05] MEDS: ENOXAPARIN 40 MG/0.4 ML SYRINGE SUB-Q (09:41)
[2019-12-05] MEDS: FINASTERIDE 5 MG TABLET PO (09:41)
[2019-12-05] MEDS: ASPIRIN 81 MG CHEWABLE TABLET BY MOUTH (09:41)
[2019-12-05] MEDS: TAMSULOSIN HCL 0.4 MG CAPSULE PO (09:41)
[2019-12-05] MEDS: polyethylene glycoL 3350 17 GM POWD.PACK PO ×2 (09:42→16:24)
--- NOTE | 2019-12-05 12:38 | PM.IMPN ---
Progress Note: A&P Assessment and Plan (1) Dementia: Code(s): F03.90 - Unspecified dementia without behavioral disturbance Status: Acute Assessment and Plan: -----Seroquel was increased last night and the patient slept a little more and is more coherent today. I do believe he will improve a little bit if he continues to have regular sleep. No other organic etiology suspected. MRI and CT of the brain does not show any acute abnormalities. B12, TSH, white blood cell count, and chest x-ray normal. UA not suspicious for infection. Blood cultures negative to date. Will likely be ready for discharge in 1-2 days (2) Dehydration: Code(s): E86.0 - Dehydration Status: Acute Assessment and Plan: -----likely due to dementia. Resolved. Fluids discontinued encourage oral hydration (3) Fecal impaction: Code(s): K56.41 - Fecal impaction Status: Acute Assessment and Plan: -----patient has had many bowel movements but is refusing rectal exam and suppository. New imaging shows moderate constipation. Will continue with bowel regimen I have increase the MiraLax to b.i.d. and added sin at night. (4) Hypertension: Code(s): I10 - Essential (primary) hypertension Status: Acute Assessment and Plan: -----last blood pressure 159/86. Continue valsartan. Subjective Date/time seen: 12/05/19 12:38 Interval history: A 84-year-old male here for dementia. Patient was seen today and doing markedly better. He was sitting on the side the bed, knew his name, knew where he was, and who the president was. The nurse states that he slept from midnight to 5:00 a.m. but did wake up a few times in between there. The tech at bedside said he had had a big bowel movement today. He also ate most of his breakfast which is an improvement as well. Patient had no complaints. Exam Narrative: Exam Narrative: General: Frail elderly patient resting on the side of the bed in no acute distress HEENT: normocephalic Neck: supple Neuro: Alert and oriented to himself, location, and president. Did not know the date. Moves all extremities spontaneously. Cranial nerves 2-12 intact. Equal strength upper lower extremities 5/5. Psych: Manic behavior CV:RRR Resp:CTA Abd: Soft, non distended. No pain to palpation. Positive bowel sounds. refused rectal exam. Extremities: No swelling, erythema, or pain to palpation. Objective Data Vital Signs Vital Signs: Vital Signs - 24 hr 12/04/19 14:00 12/04/19 21:16 12/05/19 06:00 Temperature 98.1 F 98.0 F 98.0 F Pulse Rate 83 87 92 Respiratory Rate 12 16 16 Blood Pressure 145/73 H 151/81 H 159/86 H Pulse Oximetry 98 99 97 Intake/Output Intake/Output: Intake & Output 12/02/19 12/03/19 12/04/19 12/05/19 23:59 23:59 23:59 23:59 Intake Total 1390 1930 400 Output Total 200 450 Balance 1190 1930 -50 Meds/Results Medications: Active Medications Generic Name Dose Route Start Last Admin Trade Name Freq PRN Reason Stop Dose Admin Acetaminophen 500 mg 12/02/19 23:20 Tylenol Tablet PO Q4H PRN Mild Pain (1-3) or Fever Aspirin 81 mg 12/04/19 09:00 12/05/19 09:41 Aspirin Chewable BY MOUTH 01/03/20 09:01 81 mg DAILY RAJ Administration Doxazosin Mesylate 8 mg 12/04/19 09:00 12/05/19 09:40 Cardura PO 8 mg DAILY RAJ Administration Enoxaparin Sodium 40 mg 12/03/19 09:00 12/05/19 09:41 Lovenox SUB-Q 40 mg DAILY RAJ Administration Finasteride 5 mg 12/04/19 09:00 12/05/19 09:41 Proscar PO 5 mg DAILY RAJ Administration Melatonin 5 mg 12/04/19 21:00 12/04/19 21:18 Melatonin PO 5 mg HS RAJ Administration Memantine 10 mg 12/03/19 21:00 12/05/19 09:40 Namenda PO 10 mg Q12HR RAJ Administration Pantoprazole Sodium 40 mg 12/04/19 09:00 12/05/19 09:41 Protonix PO 40 mg DAILY RAJ Administration Polyethylene Glycol 17 gm 12/05/19 09:0
[2019-12-05 14:00] VITALS: BP 114/51; PULSE 91; RESP 20; TEMP 36.6; O2SAT 96
--- NOTE | 2019-12-05 17:28 | PC.NURSE ---
Attempted to administer the dulcolax suppository again but patient is confused and refusing. Kareen is aware. Continue miralax.
--- NOTE | 2019-12-05 18:11 | WPDNEUROPN ---
Progress Note: A&P Assessment and Plan (1) Dementia: Code(s): F03.90 - Unspecified dementia without behavioral disturbance Status: Acute (2) Hypertension: Code(s): I10 - Essential (primary) hypertension Status: Acute (3) Dementia: Code(s): F03.90 - Unspecified dementia without behavioral disturbance Status: Acute Additional Plan at this point I do not believe I can add any further to his regimen he does not have any clinical signs of [employer] infection or does not have any evidence of carotid bruit and does not have a any evidence of the focal motor lateralizing deficits Review of Systems Review of Systems: All systems reviewed & are unremarkable except as noted in HPI and below Exam Const: General: comfortable and no acute distress HENMT: General nose exam: Normal nares present Mouth: Yes moist mucous membranes Eyes: General: appearance normal, both eyes and all related structures Neck: Neck: supple and no JVD Resp: Effort & Inspection: normal respiratory effort Auscultation: clear to auscultation bilaterally Cardio: Rate: regular rate Rhythm: regular rhythm GI: Auscultation: normal bowel sounds Neuro: Other: patient has moderately advanced dementia delusional and hallucinating without any discomfort without any lateralizing focal motor deficit and no clinical signs of [employer] infection or otherwise Extrem: General: normal to inspection Psych: Other: moderately advanced dementia with delusions Objective Data Vital Signs Vital Signs: Vital Signs - 24 hr 12/04/19 21:16 12/05/19 06:00 12/05/19 14:00 Temperature 36.7 C 36.7 C 36.6 C Pulse Rate 87 92 91 Respiratory Rate 16 16 20 Blood Pressure 151/81 H 159/86 H 114/51 L Pulse Oximetry 99 97 96 Intake/Output Intake/Output: Intake & Output 12/02/19 12/03/19 12/04/19 12/05/19 23:59 23:59 23:59 23:59 Intake Total 1390 1930 410 Output Total 200 450 Balance 1190 1930 -40 Meds/Results Medications: Active Medications Generic Name Dose Route Start Last Admin Trade Name Freq PRN Reason Stop Dose Admin Acetaminophen 500 mg 12/02/19 23:20 Tylenol Tablet PO Q4H PRN Mild Pain (1-3) or Fever Aspirin 81 mg 12/04/19 09:00 12/05/19 09:41 Aspirin Chewable BY MOUTH 01/03/20 09:01 81 mg DAILY RAJ Administration Doxazosin Mesylate 8 mg 12/04/19 09:00 12/05/19 09:40 Cardura PO 8 mg DAILY RAJ Administration Enoxaparin Sodium 40 mg 12/03/19 09:00 12/05/19 09:41 Lovenox SUB-Q 40 mg DAILY RAJ Administration Finasteride 5 mg 12/04/19 09:00 12/05/19 09:41 Proscar PO 5 mg DAILY RAJ Administration Melatonin 5 mg 12/04/19 21:00 12/04/19 21:18 Melatonin PO 5 mg HS RAJ Administration Memantine 10 mg 12/03/19 21:00 12/05/19 09:40 Namenda PO 10 mg Q12HR RAJ Administration Pantoprazole Sodium 40 mg 12/04/19 09:00 12/05/19 09:41 Protonix PO 40 mg DAILY RAJ Administration Polyethylene Glycol 17 gm 12/05/19 09:00 12/05/19 16:24 Miralax PO 17 gm BID RAJ Administration Quetiapine Fumarate 50 mg 12/04/19 21:00 12/04/19 21:18 Seroquel PO 50 mg HS RAJ Administration Senna 8.6 mg 12/05/19 21:00 Senokot Tablet PO HS RAJ Tamsulosin HCl 0.4 mg 12/04/19 15:00 12/05/19 09:41 Flomax PO 0.4 mg QAM RAJ Administration Valsartan 80 mg 12/04/19 09:00 12/05/19 09:41 Diovan PO 80 mg DAILY RAJ Administration Radiology Results: ITS Impressions Head CT 12/02/19 15:45 IMPRESSION: Cerebral atherosclerosis and chronic small vessel ischemic changes of the cerebral white matter No acute intracranial finding Abdomen/Pelvis CT 12/02/19 15:46 IMPRESSION: 1. Fecal impaction. 2. Colonic diverticulosis. Chest X-Ray 12/02/19 15:55 IMPRESSION: No acute cardiopulmonary findings. Brain MRI 12/04/19 15:36 IMPRESSION: 1. Normal aging brain with mild volume loss
[2019-12-05] MEDS: SENNOSIDES 8.6 MG TABLET PO (20:00)
[2019-12-05] MEDS: QUEtiapine FUMARATE 25 MG TABLET 50 MG PO ×2 (20:00→22:31)
[2019-12-05] MEDS: MELATONIN 5 MG TABLET PO (20:00)
[2019-12-05 22:00] VITALS: BP 157/85; PULSE 86; RESP 20; TEMP 36.5; O2SAT 100
[2019-12-06] MEDS: OLANZapine 10 MG INJ VIAL 5 MG IM ×2 (01:52→04:47)
--- NOTE | 2019-12-06 02:56 | PCDIET ---
Addendum entered by Natalee Davies RN 12/06/19 06:00: Nursing note not nutrition note Original Note: At approximately 2300 the patient became agitated again and made multiple attempts to flee his bed. The BULLET CASTING OPERATOR, Amanda, and myself took turns sitting in the patient's room. The patient was increasingly confused and stated he was and in heaven. He was praying in Malay and Latin. He repeatedly called me laron and referred to me as his grand daughter . The patient stripped his clothes off and urinated several times in the urinal and had incontinent episodes in his bed. At approximately 0130 he set his bed alarm off and jumped out of bed and grabbed the trash can. I entered the room and tried to get him back in bed and he attempted to throw the trash can at me. At that point I called for help and said call a sergey purple. Multiple floor staff entered the room and assisted with me putting the patient back in his bed. The lead warehouse associate came to the floor and Dr Coleman also came to the patient's room. I turned over care to DARIN Burgos.
[2019-12-06 06:00] VITALS: BP 150/79; PULSE 90; RESP 20; TEMP 36.8; O2SAT 96
--- NOTE | 2019-12-06 06:25 | PC.NURSE ---
At approximately 2300 the patient became agitated again and made multiple attempts to flee his bed. The CONSUMER ATTORNEY, Amanda, and myself took turns sitting in the patient's room. The patient was increasingly confused and stated he was and in heaven. He was praying in Turkish and Latin. He repeatedly called me laron and referred to me as his grand daughter . The patient stripped his clothes off and urinated several times in the urinal and had incontinent episodes in his bed. At approximately 0130 he set his bed alarm off and jumped out of bed and grabbed the trash can. I entered the room and tried to get him back in bed and he attempted to throw the trash can at me. At that point I called for help and said call a sergey powell. Multiple floor staff entered the room and assisted with me putting the patient back in his bed. The charhouse worker came to the floor and Dr Coleman also came to the patient's room. I turned over care to DARIN Burgos.
[2019-12-06 07:40] LABS: Rapid Plasma Reagin Non-Reactive (NonReactive)
[2019-12-06] MEDS: ENOXAPARIN 40 MG/0.4 ML SYRINGE SUB-Q (08:40)
[2019-12-06] MEDS: ASPIRIN 81 MG CHEWABLE TABLET BY MOUTH (08:40)
[2019-12-06] MEDS: VALSARTAN 80 MG TABLET PO (08:41)
[2019-12-06] MEDS: TAMSULOSIN HCL 0.4 MG CAPSULE PO (08:41)
[2019-12-06] MEDS: polyethylene glycoL 3350 17 GM POWD.PACK PO ×2 (08:41→16:44)
[2019-12-06] MEDS: DOXAZOSIN MESYLATE 4 MG TABLET 8 MG PO (08:41)
[2019-12-06] MEDS: FINASTERIDE 5 MG TABLET PO (08:41)
[2019-12-06] MEDS: PANTOPRAZOLE 40 MG TABLET PO (08:41)
[2019-12-06] MEDS: MEMANTINE 10 MG TABLET PO ×2 (08:41→21:21)
--- NOTE | 2019-12-06 11:51 | WPDNEUROPN ---
Progress Note: A&P Assessment and Plan (1) Dementia: Code(s): F03.90 - Unspecified dementia without behavioral disturbance Status: Acute (2) Hypertension: Code(s): I10 - Essential (primary) hypertension Status: Acute (3) Dementia: Code(s): F03.90 - Unspecified dementia without behavioral disturbance Status: Acute (4) Dehydration: Code(s): E86.0 - Dehydration Status: Acute (5) Altered mental status: Qualifiers: Altered mental status type: unspecified Qualified Code(s): R41.82 - Altered mental status, unspecified Code(s): R41.82 - Altered mental status, unspecified Status: Acute (6) Fecal impaction: Code(s): K56.41 - Fecal impaction Status: Acute Additional Plan stable Exam Const: General: no acute distress Nutritional Appearance: average body habitus Orientation/consciousness: confusion Limitations: language barrier HENMT: Head: normal to inspection Ears: hearing grossly normal bilaterally General nose exam: Normal external nose present and No nasal discharge present Face and sinus: normal facial exam Mouth: Yes Normal oral and palatal mucosa present Eyes: General: appearance normal, both eyes and all related structures Visual Schmitt: normal visual schmitt by confrontation Alignment and Position: alignment normal Periorbital: periorbital findings normal Conjunctivae: conjunctivae normal Sclera: sclerae normal Cornea: corneas normal Pupils: Equal, round and reactive pupils present EOM: EOMs intact bilaterally Neck: Neck: full ROM Resp: Effort & Inspection: normal respiratory effort Auscultation: clear to auscultation bilaterally Cardio: Rate: regular rate Rhythm: regular rhythm Skin: General skin exam: no rashes or lesions noted Neuro: General: moves all extremities Cranial nerves: Yes Equal, round and reactive pupils present, Yes Bilaterally intact EOM present, Yes Nystagmus not present, Yes Midline tongue present and Yes Ability to bilaterally rotate head present Cognition (Neuro): abnormal cognition Speech: aphasia (dysphasia) Gait exam (Neuro): Unable to assess gait Motor exam (neuro): 5/5 motor strength present throughout and Normal motor muscle tone present throughout Psych: Appearance: grossly normal Mental Status: other Speech and movement: Restless speech present Affect: Indifferent affect present Attitude: Other attitude/behavior findings present (Psych) Thought process: Impoverished thought process present Thought content: Yes other Insight: Poor insight present (Psych) Judgement: Poor judgement present (Psych) Objective Data Vital Signs Vital Signs: Vital Signs - 24 hr 12/05/19 14:00 12/05/19 22:00 12/06/19 06:00 Temperature 36.6 C 36.5 C 36.8 C Pulse Rate 91 86 90 Respiratory Rate 20 20 20 Blood Pressure 114/51 L 157/85 H 150/79 H Pulse Oximetry 96 100 96 Intake/Output Intake/Output: Intake & Output 12/03/19 12/04/19 12/05/19 12/06/19 23:59 23:59 23:59 23:59 Intake Total 1390 1930 1100 120 Output Total 297 394 4613 Balance 1190 1930 400 -1730 Meds/Results Medications: Active Medications Generic Name Dose Route Start Last Admin Trade Name Freq PRN Reason Stop Dose Admin Acetaminophen 500 mg 12/02/19 23:20 Tylenol Tablet PO Q4H PRN Mild Pain (1-3) or Fever Aspirin 81 mg 12/04/19 09:00 12/06/19 08:40 Aspirin Chewable BY MOUTH 01/03/20 09:01 81 mg DAILY RAJ Administration Divalproex Sodium 250 mg 12/06/19 11:45 Depakote Sprinkle PO Q12HR RAJ Doxazosin Mesylate 8 mg 12/04/19 09:00 12/06/19 08:41 Cardura PO 8 mg DAILY RAJ Administration Enoxaparin Sodium 40 mg 12/03/19 09:00 12/06/19 08:40 Lovenox SUB-Q 40 mg DAILY RAJ Administration Finasteride 5 mg 12/04/19 09:00 12/06/19 08:41 Proscar PO 5 mg DAILY RAJ Administration Melatonin 5 mg 12/04/19 21:00 12/05/19 20:00 Melatonin PO 5 mg
--- NOTE | 2019-12-06 12:56 | PM.IMPN ---
Progress Note: A&P Assessment and Plan (1) Dementia: Code(s): F03.90 - Unspecified dementia without behavioral disturbance Status: Acute Assessment and Plan: -----Continue Seroquel 50mg at night. 2 night ago he slept 4 hours and did well during the day. Last night he didn't sleep and hes back to being very confused. No other organic etiology suspected. MRI and CT of the brain does not show any acute abnormalities. B12, TSH, RPR, white blood cell count, and chest x-ray normal. UA not suspicious for infection. Blood cultures negative to date. Because of the increased agitation (required zyprexa x 2 overnight), will start depakote and zoloft. (2) Dehydration: Code(s): E86.0 - Dehydration Status: Acute Assessment and Plan: -----likely due to dementia. Resolved. Fluids discontinued encourage oral hydration (3) Fecal impaction: Code(s): K56.41 - Fecal impaction Status: Acute Assessment and Plan: -----Pt only has had one BM today. He refuses enemas or suppositories. Continue MiraLax b.i.d and senna daily. One dose of milk of mag today. (4) Hypertension: Code(s): I10 - Essential (primary) hypertension Status: Acute Assessment and Plan: -----last blood pressure 150/79 Continue valsartan. Additional Plan Spoke with DaughterRylie about plan of care 12/06/19 Subjective Date/time seen: 12/06/19 12:56 Interval history: A 84-year-old male here for dementia. Patient was seen today and did not have a good night. Nursing staff said he was very restless and did not sleep very much. Pt has no complaints today. Exam Narrative: Exam Narrative: General: Frail elderly patient resting in bed in NAD HEENT: normocephalic Neck: supple Neuro: Alert but not oriented at all today. Moves all extremities spontaneously. Will not follow commands Psych: Manic behavior CV:RRR Resp:CTA Abd: Soft, non distended. No pain to palpation. Positive bowel sounds. refused rectal exam. Extremities: No swelling, erythema, or pain to palpation. Objective Data Vital Signs Vital Signs: Vital Signs - 24 hr 12/05/19 14:00 12/05/19 22:00 12/06/19 06:00 Temperature 97.8 F 97.7 F 98.2 F Pulse Rate 91 86 90 Respiratory Rate 20 20 20 Blood Pressure 114/51 L 157/85 H 150/79 H Pulse Oximetry 96 100 96 Intake/Output Intake/Output: Intake & Output 12/03/19 12/04/19 12/05/19 12/06/19 23:59 23:59 23:59 23:59 Intake Total 1390 1930 1100 360 Output Total 434 725 7219 Balance 1190 1930 400 -1490 Meds/Results Medications: Active Medications Generic Name Dose Route Start Last Admin Trade Name Freq PRN Reason Stop Dose Admin Acetaminophen 500 mg 12/02/19 23:20 Tylenol Tablet PO Q4H PRN Mild Pain (1-3) or Fever Aspirin 81 mg 12/04/19 09:00 12/06/19 08:40 Aspirin Chewable BY MOUTH 01/03/20 09:01 81 mg DAILY RAJ Administration Divalproex Sodium 250 mg 12/06/19 11:45 Depakote Sprinkle PO Q12HR RAJ Doxazosin Mesylate 8 mg 12/04/19 09:00 12/06/19 08:41 Cardura PO 8 mg DAILY RAJ Administration Enoxaparin Sodium 40 mg 12/03/19 09:00 12/06/19 08:40 Lovenox SUB-Q 40 mg DAILY RAJ Administration Finasteride 5 mg 12/04/19 09:00 12/06/19 08:41 Proscar PO 5 mg DAILY RAJ Administration Melatonin 5 mg 12/04/19 21:00 12/05/19 20:00 Melatonin PO 5 mg HS RAJ Administration Memantine 10 mg 12/03/19 21:00 12/06/19 08:41 Namenda PO 10 mg Q12HR RAJ Administration Pantoprazole Sodium 40 mg 12/04/19 09:00 12/06/19 08:41 Protonix PO 40 mg DAILY RAJ Administration Polyethylene Glycol 17 gm 12/05/19 09:00 12/06/19 08:41 Miralax PO 17 gm BID RAJ Administration Quetiapine Fumarate 50 mg 12/04/19 21:00 12/05/19 20:00 Seroquel PO 50 mg HS RAJ Administration Senna 8.6 mg 12/05/19 21:00 12/05/19 20:00 Senokot Tablet PO 8.6 mg HS S
[2019-12-06] MEDS: DIVALPROEX SODIUM SPRINKLE 125 MG CAP.DR 250 MG PO ×2 (12:57→21:21)
[2019-12-06] MEDS: SERTRALINE HCL 12.5 MG TABLET PO (13:20)
[2019-12-06] MEDS: MAGNESIUM HYDROXIDE SUSP 30 ML UDC PO (13:25)
[2019-12-06 15:01] VITALS: BP 129/78; PULSE 79; RESP 18; TEMP 36.5; O2SAT 99
--- NOTE | 2019-12-06 16:53 | PCOTNOTE ---
Unable to see pt on 12/06/2019 for OT tx. Will continue per POC frequency and duration.
[2019-12-06 20:26] VITALS: BP 148/75; PULSE 86; RESP 18; TEMP 36.8; O2SAT 97
[2019-12-06] MEDS: QUEtiapine FUMARATE 25 MG TABLET 50 MG PO (21:21)
[2019-12-06] MEDS: SENNOSIDES 8.6 MG TABLET PO (21:21)
[2019-12-06] MEDS: MELATONIN 5 MG TABLET PO (21:22)
[2019-12-07] MEDS: ACETAMINOPHEN 500 MG TABLET PO (05:11)
[2019-12-07 05:41] LABS: Hematocrit 38.1 % (42.0-52.0); Mean Corpuscular HGB Conc 34.1 g/dl (32-36); Mean Corpuscular Hemoglobin 30.7 pg (26-34); Mean Corpuscular Volume 90.1 fl (80-100); Mean Platelet Volume 9.7 fl (7.4-10.4); Platelet Count Result 187 k/mm3 (150-375); Red Blood Count 4.23 M/mm3 (4.6-6.20); Red Cell Distribution Width 13.2 % (11.5-14.5); White Blood Count 7.4 K/mm3 (4.5-10.0)
[2019-12-07 06:00] VITALS: BP 122/67; PULSE 75; RESP 18; TEMP 36.6; O2SAT 95
[2019-12-07 06:09] LABS: Blood Urea Nitrogen 13 mg/dL (9-20); Calcium 8.7 mg/dL (8.4-10.2); Carbon Dioxide 29 mmol/L (22-30); Chloride 108 mmol/L (98-107); Estimated CRCL calculation 56 ml/min; Estimated Glomerular Filt Rate > 60; Glucose 89 mg/dL (75-110); Magnesium 2.2 mg/dL (1.6-2.3); Phosphorus 2.8 mg/dL (2.5-4.5); Potassium 3.9 mmol/L (3.4-5.0); Sodium 139 mmol/L (137-145)
[2019-12-07] MEDS: ENOXAPARIN 40 MG/0.4 ML SYRINGE SUB-Q (09:12)
[2019-12-07] MEDS: polyethylene glycoL 3350 17 GM POWD.PACK PO ×2 (09:12→16:38)
[2019-12-07] MEDS: DIVALPROEX SODIUM SPRINKLE 125 MG CAP.DR 250 MG PO ×2 (09:13→20:37)
[2019-12-07] MEDS: ASPIRIN 81 MG CHEWABLE TABLET BY MOUTH (09:13)
[2019-12-07] MEDS: FINASTERIDE 5 MG TABLET PO (09:13)
[2019-12-07] MEDS: DOXAZOSIN MESYLATE 4 MG TABLET 8 MG PO (09:13)
[2019-12-07] MEDS: PANTOPRAZOLE 40 MG TABLET PO (09:13)
[2019-12-07] MEDS: TAMSULOSIN HCL 0.4 MG CAPSULE PO (09:13)
[2019-12-07] MEDS: VALSARTAN 80 MG TABLET PO (09:13)
[2019-12-07] MEDS: MEMANTINE 10 MG TABLET PO ×2 (09:13→20:37)
--- NOTE | 2019-12-07 10:37 | PM.IMPN ---
Progress Note: A&P Assessment and Plan (1) Dementia: Code(s): F03.90 - Unspecified dementia without behavioral disturbance Status: Acute Assessment and Plan: Slept some last night and doing okay without a sitter so far this morning. MRI and CT brain without any acute abnormalities. No other metabolic etiology is suspected; B12, TSH, WBC, UA within normal limits. Chest XR clear. Blood cultures pending with no growth to date. Started on depakote and zoloft yesterday. Monitor today. Anticipate possible discharge tomorrow. (2) Dehydration: Code(s): E86.0 - Dehydration Status: Resolved Assessment and Plan: [place] to be secondary to poor oral intake with dementia. Resolved - IV fluids discontinued; encourage oral hydration. (3) Fecal impaction: Code(s): K56.41 - Fecal impaction Status: Acute Assessment and Plan: 2 BMs yesterday per nursing. He has refused enemas and suppositories. Continue Miralax BID and Senna daily. (4) Hypertension: Code(s): I10 - Essential (primary) hypertension Status: Acute Assessment and Plan: Last BP 122/67. Continue valsartan. Monitor BP and adjust treatment as needed. Subjective Date/time seen: 12/07/19 1015 Interval history: Mr. Wilson is an 84yo M admitted with dementia, increased confusion. Required a patient sitter overnight but per nursing, calmed down last night and has been okay so far this morning. He is awake and talkative but his speech is nonsensical. He is not able to answer any questions but appears comfortable. Review of Systems Review of Systems: ROS unobtainable: Yes unobtainable due to mental status Exam Narrative: Exam Narrative: General: Elderly male resting comfortably in bed in no acute distress. Neuro: Answers to his first name but cannot answer any questions. Awake, alert, speech is nonsensical. Moves all extremities spontaneously. Not able to follow simple commands. HEENT: Normocephalic, EOMI, oral mucosa moist. Cardiovascular: Rate and rhythm are regular. Respiratory: Lungs clear to auscultation; tolerating room air. Abdomen: Soft, non-tender, non-distended, bowel sounds present. Extremities: Peripheral pulses intact. No edema. Objective Data Vital Signs Vital Signs: Last Vital Signs Temp 97.9 F 12/07/19 06:00 Pulse 75 12/07/19 06:00 Resp 18 12/07/19 06:00 BP 122/67 12/07/19 06:00 Pulse Ox 95 12/07/19 06:00 Intake/Output Intake/Output: Intake & Output 12/04/19 12/05/19 12/06/19 12/07/19 23:59 23:59 23:59 23:59 Intake Total 1930 1100 360 370 Output Total 700 2050 175 Balance 1930 400 -1690 195 Meds/Results Medications: Active Medications Generic Name Dose Route Start Last Admin Trade Name Freq PRN Reason Stop Dose Admin Acetaminophen 500 mg 12/02/19 23:20 12/07/19 05:11 Tylenol Tablet PO 500 mg Q4H PRN Administration Mild Pain (1-3) or Fever Aspirin 81 mg 12/04/19 09:00 12/07/19 09:13 Aspirin Chewable BY MOUTH 01/03/20 09:01 81 mg DAILY ARJ Administration Divalproex Sodium 250 mg 12/06/19 11:45 12/07/19 09:13 Depakote Sprinkle PO 250 mg Q12HR RAJ Administration Doxazosin Mesylate 8 mg 12/04/19 09:00 12/07/19 09:13 Cardura PO 8 mg DAILY RAJ Administration Enoxaparin Sodium 40 mg 12/03/19 09:00 12/07/19 09:12 Lovenox SUB-Q 40 mg DAILY RAJ Administration Finasteride 5 mg 12/04/19 09:00 12/07/19 09:13 Proscar PO 5 mg DAILY RAJ Administration Melatonin 5 mg 12/04/19 21:00 12/06/19 21:22 Melatonin PO 5 mg HS RAJ Administration Memantine 10 mg 12/03/19 21:00 12/07/19 09:13 Namenda PO 10 mg Q12HR RAJ Administration Pantoprazole Sodium 40 mg 12/04/19 09:00 12/07/19 09:13 Protonix PO 40 mg DAILY RAJ Administration Polyethylen
[2019-12-07 14:00] VITALS: BP 141/80; PULSE 81; RESP 16; TEMP 36.5; O2SAT 96
[2019-12-07 20:00] VITALS: BP 163/75; PULSE 89; RESP 22; TEMP 37.2; O2SAT 99
[2019-12-07] MEDS: HALOPERIDOL LACTATE 5 MG/ML VIAL IM (20:24)
[2019-12-07] MEDS: QUEtiapine FUMARATE 25 MG TABLET 50 MG PO (20:37)
[2019-12-07] MEDS: SENNOSIDES 8.6 MG TABLET PO (20:37)
[2019-12-07] MEDS: MELATONIN 5 MG TABLET PO (20:37)
[2019-12-08 04:00] VITALS: BP 118/58; PULSE 88; RESP 18; TEMP 36.7; O2SAT 97
[2019-12-08 08:00] VITALS: PULSE 88; RESP 18; O2SAT 97
[2019-12-08 08:32] LABS: SARS-CoV-2 RNA PCR Negative
[2019-12-08] MEDS: PANTOPRAZOLE 40 MG TABLET PO (09:15)
[2019-12-08] MEDS: TAMSULOSIN HCL 0.4 MG CAPSULE PO (09:15)
[2019-12-08] MEDS: ASPIRIN 81 MG CHEWABLE TABLET BY MOUTH (09:15)
[2019-12-08] MEDS: DIVALPROEX SODIUM SPRINKLE 125 MG CAP.DR 250 MG PO (09:15)
[2019-12-08] MEDS: MEMANTINE 10 MG TABLET PO (09:15)
[2019-12-08] MEDS: DOXAZOSIN MESYLATE 4 MG TABLET 8 MG PO (09:15)
[2019-12-08] MEDS: VALSARTAN 80 MG TABLET PO (09:16)
[2019-12-08] MEDS: ENOXAPARIN 40 MG/0.4 ML SYRINGE SUB-Q (09:16)
[2019-12-08] MEDS: FINASTERIDE 5 MG TABLET PO (09:16)
[2019-12-08] MEDS: polyethylene glycoL 3350 17 GM POWD.PACK PO (09:16)
--- NOTE | 2019-12-08 09:25 | WPDNEUROPN ---
Progress Note: A&P Assessment and Plan (1) Dementia: Code(s): F03.90 - Unspecified dementia without behavioral disturbance Status: Acute (2) Hypertension: Code(s): I10 - Essential (primary) hypertension Status: Acute (3) Dehydration: Code(s): E86.0 - Dehydration Status: Resolved (4) Altered mental status: Qualifiers: Altered mental status type: unspecified Qualified Code(s): R41.82 - Altered mental status, unspecified Code(s): R41.82 - Altered mental status, unspecified Status: Acute (5) Fecal impaction: Code(s): K56.41 - Fecal impaction Status: Acute Additional Plan stable /unchanged/confused/not parkinsonian. Review of Systems Review of Systems: All systems reviewed & are unremarkable except as noted in HPI and below Exam Const: General: comfortable, no acute distress, alert, awake and confusion Nutritional Appearance: average body habitus and thin Orientation/consciousness: confusion Limitations: behavioral limitations and language barrier Eyes: General: appearance normal, both eyes and all related structures Alignment and Position: alignment normal Periorbital: periorbital findings normal Eyelids: eyelids normal Conjunctivae: conjunctivae normal Sclera: sclerae normal Cornea: corneas normal Pupils: Equal, round and reactive pupils present EOM: EOMs intact bilaterally Direct Ophthalmoscopy: normal light reflex Neck: Neck: full ROM and no lymphadenopathy Resp: Effort & Inspection: normal respiratory effort Auscultation: clear to auscultation bilaterally Cardio: Rate: regular rate Rhythm: regular rhythm GI: Auscultation: normal bowel sounds Skin: General skin exam: no rashes or lesions noted Neuro: General: moves all extremities Cranial nerves: Yes Facial sensation intact/muscles of mastication intact, Yes Equal, round and reactive pupils present, Yes Bilaterally intact EOM present, Yes Nystagmus not present, Yes Normal facial strength present, Yes Midline tongue present and Yes Normal gag reflex present Cognition (Neuro): abnormal cognition Speech: Abnormal speech present Gait exam (Neuro): Unable to assess gait Motor exam (neuro): Motor fasciculations not present, Normal motor muscle tone present throughout and Motor abnormalities not present Deep tendon reflexes (DTR's): Right triceps reflex intensity grade: 1+, Left triceps reflex intensity grade: 1+, Rt Biceps (C5, C6): 1+, Left biceps reflex intensity grade: 1+, Right brachioradialis reflex intensity grade: 1+, Left brachioradialis reflex intensity grade: 1+, Right patellar reflex intensity grade: 1+, Left patellar reflex intensity grade: 1+, Right ankle reflex intensity grade: 1+ and Left ankle reflex intensity grade: 1+ Plantar Reflex Responses: equivocal: bilateral Psych: Speech and movement: Restless speech present Affect: Indifferent affect present Attitude: Other attitude/behavior findings present (Psych) Insight: Poor insight present (Psych) Judgement: Poor judgement present (Psych) Objective Data Vital Signs Vital Signs: Vital Signs - 24 hr 12/07/19 14:00 12/07/19 20:00 12/08/19 04:00 Temperature 36.5 C 37.2 C 36.7 C Pulse Rate 81 89 88 Respiratory Rate 16 22 H 18 Blood Pressure 141/80 H 163/75 H 118/58 L Pulse Oximetry 96 99 97 Intake/Output Intake/Output: Intake & Output 12/05/19 12/06/19 12/07/19 12/08/19 23:59 23:59 23:59 23:59 Intake Total 1100 360 870 100 Output Total 700 2050 325 250 Balance 400 -1690 545 -150 Meds/Results Medications: Active Medications Generic Name Dose Route Start Last Admin Trade Name Freq PRN Reason Stop Dose Admin Acetaminophen 500 mg 12/02/19 23:20 12/07/19 05:11 Tylenol Tablet PO 500 mg Q4H PRN Administration Mild Pain (1-3) or Fever Aspirin 81 mg 12/04/19 09:00 12/08/19 09:15 Aspirin Chewable BY MOUTH 01/03/20 09:01 81 mg DAILY RAJ Administration Divalproex Sodium 250 mg
--- NOTE | 2019-12-08 11:08 | PM.DS ---
DS: Admitting Diagnosis Admitting Diagnosis Admitting Diagnosis: Unspecified dementia with behavioral disturbance DS: Discharge Diagnosis Discharge Diagnosis (1) Dementia: Code(s): F03.90 - Unspecified dementia without behavioral disturbance Status: Acute Assessment and Plan: Date of Service 12/08/19 Mr. Wilson is an 84yo M with history of dementia who was brought into the ED from home by his for evaluation of decreased oral intake, weight loss, and worsening dementia. She noted he was having increased confusion and combative behaviors over the last couple months, not sleeping for more than 20 minutes at a time and was becoming more unmanageable at home. He was seen by his neurologist in the office who advised patient be brought to the ED. During this stay, he was mostly only oriented to self but not place or time. He would mostly be calm through the day and begin with combative behaviors (yelling, pushing staff) into the late afternoon and evening, sometimes requiring a dose of Zyprexa or Haldol. He was started on Seroquel each evening starting 12/03 and started on Depakote 12/06/19. He was again evaluated by his neurologists here and it was felt that his symptoms are due to progressive dementia. CT/abdomen pelvis demonstrated fecal impaction. He refused enemas and suppositories but was started on BID miralax and daily senna, after which he had several bowel movements. Recommend continuing a bowel regimen at discharge. He was tested for COVID-19 for discharge screening purposes 12/07/19 and was negative. He was accepted to [facility] isolated memory care unit and was hemodynamically stable for discharge 12/08/19. Monitoring liver enzymes over time is recommended after discharge since starting Depakote. MRI and CT brain without any acute abnormalities. No other metabolic etiology is suspected; vitamin B12, TSH, WBC, UA within normal limits. Chest XR clear. Blood cultures pending with no growth to date. Started on depakote 12/05. (2) Dehydration: Code(s): E86.0 - Dehydration Status: Resolved Assessment and Plan: [place] to be secondary to poor oral intake with dementia. Resolved with IV fluids. Encourage oral hydration. (3) Fecal impaction: Code(s): K56.41 - Fecal impaction Status: Acute Assessment and Plan: Resolved with Miralax BID and Senna daily. He has refused enemas and suppositories. Had several bowel movements prior to discharge. Continue a bowel regimen. (4) Hypertension: Code(s): I10 - Essential (primary) hypertension Status: Acute Assessment and Plan: Stable maintained on his home valsartan. DS: Summary Time Spent with Patient Time attestation: Total time spent providing and/or coordinating discharge services: 60 minutes Exam Narrative: Exam Narrative: Last Vital Signs Temp 98.1 F 12/08/19 04:00 Pulse 88 12/08/19 08:00 Resp 18 12/08/19 08:00 BP 118/58 L 12/08/19 04:00 Pulse Ox 97 12/08/19 08:00 General: Elderly male resting comfortably in bed in no acute distress. Neuro: Able to tell me his first and last name but cannot answer any questions. Awake, alert, speech is nonsensical. Moves all extremities spontaneously. Not able to follow simple commands. HEENT: Normocephalic, EOMI, oral mucosa moist. Cardiovascular: Rate and rhythm are regular. Respiratory: Lungs clear to auscultation; tolerating room air. Abdomen: Soft, non-tender, non-distended, bowel sounds present. Extremities: Peripheral pulses intact. No edema. DS: Data Data Completed and Pending Labs on day of discharge: Labs from last 24 hours 12/07/19 14:39 SARS-CoV-2 R
== END 2019-12-08 12:53 | DRG 641 ==
LOC: ANHED 19:59 → ANH2MED 20:09
PROVIDERS: Physician Assistant; Psychiatry & Neurology Neurology; Admitting Provider Internal Medicine; Emergency Provider Emergency Medicine; PCP Family Medicine; Visit Provider Internal Medicine
DX: E86.0 Dehydration (principal); F03.90 Unspecified dementia, unspecified severity, without behavioral disturbance, psychotic disturbance, mood disturbance, and anxiety; K56.41 Fecal impaction; I10 Essential (primary) hypertension; Z11.59 Encounter for screening for other viral diseases
CPT/HCPCS: 36415; 51701; 70450; 70551; 71046; 74019; 74177; 80048; 80053; 81001; 82140; 82550; 82607; 82746; 83615; 83735; 84100; 84443; 85025; 85027; 85610; 85730; 86140; 86592; 87040; 87635; 93005; 96360; 96361; 96372; 97110; 97116; 97161; 97165; 97530; 97535; 99285; A9270; C9803; G0378; J1630; J1650; J2060; J7120; Q9967; U0003

== ENCOUNTER 2021-02-21 01:02 | Day surgery (SDC) | payer MEDICARE, SELFPAY ==
[2021-02-14 15:26] VITALS: BMI 18.6
--- NOTE | 2021-02-20 11:20 | PM.SD2 ---
Same Day Admit/Disch: HPI History of Present Illness Chief complaint: right inguinal hernia Narrative: Rob Wilson Jr. is a 85 year old male With dementia. He was in a nursing facility until approximately December 19, 2020. After being discharged home, a large right inguinal hernia was noted. This apparently has been present since about August of this year. Patient's and daughter have noticed that this seems to be bothersome for him. He was seen in the office and is now taken to surgery for right inguinal hernia repair under anesthesia as an outpatient. He had a previous left inguinal hernia repaired in the 1949s. This recurred and was repaired again with mesh in 2010. There is no history of previous right inguinal hernia repair. [facility] Past Medical History Medical History Dementia Diagnosis October 2017 Dementia Diverticulosis Esophageal stricture Gastritis Chronic gastritis noted on EGD March 2012 Gastroparesis Delayed gastric emptying noted on gastric emptying study January 2016 Hypertension Internal hemorrhoids Surgical History Surgical History History of cholecystectomy 2005 History of colonoscopy With small internal hemorrhoids, rectal had and diverticulosis noted on colonoscopy May [address] Stout History of esophagogastroduodenoscopy (EGD) March 2012 History of left inguinal hernia repair 1955 and recurrence with repair in 2010 with mesh placement History of right knee surgery Removal of right patella 1967 Family History Family History Mother Bladder disease Heart disease Sibling , Brother Chronic kidney disease Diabetes mellitus Father Diabetes mellitus Heart disease Unknown Cerebrovascular accident Sibling Bone cancer Social History Social History Social History: Primary care physician: Dr. Sandra Curiel Code status: DNR per family request Years smoked: 2 Smoking status: Never smoker Alcohol intake: never Alcohol use details: Rarely and only in moderation. Substance use: never Living arrangements: with family Additional living arrangements comments: He lives in [place] annoyed with his . 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 Gender identity (if verbalized by the patient): Male Sexual Orientation (if Verbalized by the Patient): Straight or Heterosexual Spiritual care concerns: No Same Day Admit/Disch: Med Pre-admit Medications Home Medications Medication Instructions Recorded Confirmed Type pantoprazole 40 mg PO DAILY 08/19/19 02/21/21 History divalproex 125 mg tablet,delayed 375 mg PO BID tablet 12/20/20 02/21/21 History release losartan 50 mg tablet 50 mg PO DAILY 12/20/20 02/21/21 History mirtazapine 15 mg tablet 15 mg PO DAILY 12/20/20 02/21/21 History memantine 10 mg tablet 10 mg PO BID 01/09/21 02/21/21 History quetiapine 50 mg tablet 50 mg PO DAILY 01/09/21 02/21/21 History tamsulosin 0.4 mg PO DAILY 02/14/21 02/21/21 History ibuprofen 600 mg PO Q6H PRN #10 tablet 02/21/21 Rx Exam Const: General: comfortable, no acute distress, alert and awake HENMT: Head: normocephalic and atraumatic Mouth: Yes Normal oral and palatal mucosa present Eyes: Conjunctivae: conjunctivae normal Pupils: Equal, round and reactive pupils present EOM: EOMs intact bilaterally Neck: Neck: normal visual inspection, no lymphadenopathy and nontender Resp: Effort & Inspection: normal respiratory effort Auscultation: clear to auscultation bilaterally Cardio: Rate: regular rate Rhythm: regular rhythm Heart sounds: no gallops, no murmurs and no rubs GI: Inspection: non-distended GI Palp: Yes Soft to palpation, No Tenderness to palpation present (GI),
[2021-02-21] VITALS (8 sets, daily range): BP systolic 101–134; BP diastolic 59–70; PULSE 60–75; RESP 14–20; TEMP 36.3; O2SAT 96–100
--- NOTE | 2021-02-21 09:45 | WPDHPUPDATE1 ---
History and Physical Update Update Date/Time: 02/21/21 09:45 History and Physical has been reviewed, including an updated exam of the patient. There are NO changes in the patient's condition. Risks, benefits, and alternatives have been discussed and questions answered. Patient agrees to proceed with procedure.
[2021-02-21] MEDS: ACETAMINOPHEN 500 MG TABLET 1000 MG PO (11:38)
[2021-02-21] MEDS: KETOROLAC 15 MG/ML VIAL (*BKC) IV PUSH (11:38)
--- NOTE | 2021-02-21 12:43 | WPDANESEPPF ---
Anes - Initial Pre Proc Eval Procedure: Operation Date: 02/21/21 13:00 Proposed Procedures p Right Inguinal Hernia Repair - Chay Avery MD Date/Time: 02/21/21 12:43 Surgeon: Chay Avery MD Pre Op Diagnosis: right inguinal hernia Patient Data Age: 85 Gender: M Height: 1.78 m Weight: 56.2 kg Last Vital Signs Temp 36.3 C L 02/21/21 11:13 Pulse 75 02/21/21 11:13 Resp 20 02/21/21 11:13 BP 110/65 02/21/21 11:13 Pulse Ox 99 02/21/21 11:13 Allergies Allergy/AdvReac Type Severity Reaction Status Date / Time Penicillins AdvReac Intermediate HIVES Verified 02/21/21 11:46 morphine AdvReac Unknown Hives Verified 02/21/21 11:46 Home Medications Medication Instructions Recorded Confirmed Type pantoprazole 40 mg PO DAILY 08/19/19 02/21/21 History divalproex 125 mg tablet,delayed 375 mg PO BID tablet 12/20/20 02/21/21 History release losartan 50 mg tablet 50 mg PO DAILY 12/20/20 02/21/21 History mirtazapine 15 mg tablet 15 mg PO DAILY 12/20/20 02/21/21 History memantine 10 mg tablet 10 mg PO BID 01/09/21 02/21/21 History quetiapine 50 mg tablet 50 mg PO DAILY 01/09/21 02/21/21 History tamsulosin 0.4 mg PO DAILY 02/14/21 02/21/21 History Patient hx anesthesia problems: none Family hx anesthesia problems: none [facility] Past Medical History Medical History Dementia Diagnosis October 2017 Dementia Diverticulosis Esophageal stricture Gastritis Chronic gastritis noted on EGD March 2012 Gastroparesis Delayed gastric emptying noted on gastric emptying study January 2016 Hypertension Internal hemorrhoids Surgical History Surgical History History of cholecystectomy 2005 History of colonoscopy With small internal hemorrhoids, rectal had and diverticulosis noted on colonoscopy May [address] Stout History of esophagogastroduodenoscopy (EGD) March 2012 History of left inguinal hernia repair 1955 and recurrence with repair in 2010 with mesh placement History of right knee surgery Removal of right patella 1967 Family History Family History Mother Bladder disease Heart disease Sibling , Brother Chronic kidney disease Diabetes mellitus Father Diabetes mellitus Heart disease Unknown Cerebrovascular accident Sibling Bone cancer Social History Social History Social History: Primary care physician: Dr. Sandra Curiel Code status: DNR per family request Years smoked: 2 Smoking status: Never smoker Alcohol intake: never Alcohol use details: Rarely and only in moderation. Substance use: never Living arrangements: with family Additional living arrangements comments: He lives in [place] annoyed with his . 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 Gender identity (if verbalized by the patient): Male Sexual Orientation (if Verbalized by the Patient): Straight or Heterosexual Spiritual care concerns: No Anes - Eval Final PreProcedure Day of Procedure 02/21/21 12:43 Patient weight: thin Heart: regular rate and rhythm Lungs: clear to auscultation Airway: Mallampati scale class II Neurological: alert and oriented Last oral intake: >/= 8 hours ASA classification: III Emergent: no Anesthetic plan: proceed Anesthesia type and monitoring: general GIVS and standard monitoring Informed Consent: The patient's anesthetic plan and its attendant risks and benefits were discussed with the patient/family/POA. Questions were solicited and answers provided to the satisfaction of the patient/family/POA.
[2021-02-21] MEDS: ceFAZolin 2 GM/D5W 50 ML 2 GM/50 ML BAG IVPB (13:07)
[2021-02-21] MEDS: BUPIVACAINE/EPINEPHRINE 0.5% 50 ML VIAL (13:24)
[2021-02-21] MEDS: LACTATED RINGERS 1,000 ML 30 ML IV CONT ×2 (14:14→15:34)
--- NOTE | 2021-02-21 14:26 | W.PM.PROC2 ---
Procedure Note - Detailed Date of Procedure 02/21/21 Pre-op Diagnosis right inguinal hernia Post-op Diagnosis same Procedure Performed Right inguinal hernia repair with 6 cm Parietex hernia mesh system Surgeon Chay Avery MD [employer] Operator Graciela SANCHEZ Anesthesia MAC and local ( 0.5% Marcaine with epinephrine) Indications patient has a large right inguinal hernia that is been causing him some pain. He is taken to surgery now for repair. Findings Large indirect hernia Description of Procedure patient was taken to surgery and IV sedation was administered. The right groin and genitalia were prepped and draped. The proposed incision was marked in the right inguinal region. Local anesthesia was infiltrated in the area of the anticipated incision and in the deeper subcutaneous tissues. Incision was made and dissection was carried down through the subcutaneous. Crossing veins were cauterized and divided. Dissection was carried down to the external oblique aponeurosis. The aponeurosis was exposed as was the external ring. Additional local was infiltrated deep to the aponeurosis in the area of the spermatic cord and inguinal canal contents. The aponeurosis was opened laterally and extended medially through the external ring. The leaves of the aponeurosis were freed from the underlying inguinal canal contents. I then mobilized the spermatic cord medially on a [place] drain. The cord was further mobilized back to the internal ring. I then dissected in the anteromedial aspect of the spermatic cord and found the hernia sac. It was a pretty large sac. It was dissected free from the spermatic cord. It was dissected back to the internal ring. A high dissection was performed. The sac was then dunked into the retroperitoneum. The hernia defect was plugged with a 6 cm Parietex nulato. The nulato was folded deform a plug and the edges were then sutured to the transversalis fascia. This was done in interrupted fashion with 3 0 Vicryl. I then infiltrated additional local into the inguinal canal floor. The patch was cut to the appropriate size and placed over the inguinal canal floor. The lateral leaves were passed around the cord. The spermatic cord and ilioinguinal nerve were then placed over the patch. The ileoinguinal nerve had been left attached to the spermatic cord and unharmed during the surgery. I then closed the external oblique aponeurosis with interrupted 3 0 Vicryl suture. Ama's fascia was closed with interrupted 3 0 Vicryl suture. The skin was loosely approximated with 4 0 Vicryl subcuticular interrupted skin sutures. Skin was then closed with running 4 0 Monocryl skin suture. The wound was dressed with Exofin surgical adhesive. The patient was awakened and taken to recovery in good condition. Sponge and needle counts were correct x2. Implants 6 cm Parietex hernia mesh system Estimated Blood Loss -10.0 Drains No Packing No Pathology none sent Complications None Condition stable Disposition same day
--- NOTE | 2021-02-21 17:07 | SUR.PHASEII ---
1700 - Dr. Avery in room talking with pt and pt's family
== END 2021-02-21 17:30 | disposition home or self-care (01) ==
PROVIDERS: PCP Family Medicine; Visit Provider Surgery
PROC: (CPT 49505; principal; 2021-02-21 13:00)
DX: K40.90 Unilateral inguinal hernia, without obstruction or gangrene, not specified as recurrent (principal); F03.90 Unspecified dementia, unspecified severity, without behavioral disturbance, psychotic disturbance, mood disturbance, and anxiety; I10 Essential (primary) hypertension
CPT/HCPCS: 49505; A9270; C1781; J0690; J1885; J2370; J2704; J3010; J7120